=== PATIENT | male | born 1940 | race Caucasian/White ===

== ENCOUNTER 2020-03-10 16:42 | Inpatient (IN) | payer OTHER, SELFPAY ==
[2020-03-10 16:42] VITALS: BP 144/85; PULSE 82; RESP 20; TEMP 36.6; O2SAT 94; BMI 25.1
[2020-03-10] MEDS: Morphine 4 MG/ML Syringe IV (17:35)
[2020-03-10] MEDS: 0.9% Normal Saline 1,000 ML 1000 ML IV (17:35)
[2020-03-10] MEDS: Ondansetron 4 MG/2 ML Vial IV (17:35)
[2020-03-10 17:39] LABS: Absolute Lymphocyte Count 0.86 X10^3/uL (0.83-4.51); Absolute Neutrophil Count 8.7 X10^3/uL (2.0-7.7); Basophil# 0.05 X10^3/uL; Basophil% 0.4 % (0-1); Eosinophil# 0.09 X10^3/uL; Eosinophils% 0.8 % (0-5); Hematocrit 38.1 % (40-54); Hemoglobin 12.9 g/dL (13.0-16.5); Lymphocyte # 0.86 X10^3/ul (4.0); Lymphocyte % 7.7 % (19-41); Mean Corp Hgb Conc 33.9 g/dL (32-36); Mean Corpuscular Hgb 30.1 pg (27.0-32.0); Monocyte# 1.31 X10^3/uL; Monocyte% 11.7 % (0-10); NRBC Flagged by Analyzer 0 % (0-5); Neutrophil # 8.74 X10^3/uL (2.7-7.7); Neutrophil % 78.5 % (47-70); Platelet Count 216 K/mm3 (150-450); RBC Distribution Width CV 12.6 % (11.6-14.6); RBC Distribution Width SD 41.2 fl (35.1-43.9); Red Blood Count 4.28 M/mm3 (4.6-6.2); White Blood Count 11.2 K/mm3 (4.4-11.0)
[2020-03-10 17:42] VITALS: BP 153/97; PULSE 84; RESP 17; O2SAT 93
[2020-03-10 17:56] LABS: ALB/GLOB Ratio 0.8 RATIO (0.9-2.4); AST(SGOT) 26 U/L (15-37); Alanine Aminotransfer ALT/SGPT 24 U/L (16-61); Albumin, Serum 3.3 g/dL (3.2-5.0); Alkaline Phosphatase 97 U/L (45-117); Anion Gap 14 (5-15); BUN 102 mg/dL (7-18); BUN/Creat Ratio 12.2 RATIO (10-20); Calcium,Total 8.6 mg/dL (8.5-10.1); Chloride 93 mmol/L (98-107); Creatinine, Serum 8.35 mg/dL (0.70-1.30); EST Glomerular Filtration Rate 7 mL/min (>60); Est Glom Filt Rate - Afr Amer 8 mL/min (>60); Estimated Creatinine Clearance 7.26 ml/min; Globulin 4.4 g/dL (2.2-4.2); Glucose 116 mg/dL (74-106); Potassium 4.1 mmol/L (3.5-5.1); Protein, Total 7.7 g/dL (6.4-8.2); Sodium Level 129 mmol/L (136-145)
[2020-03-10] MEDS: Lidocaine Jelly 2% 20 ML Syringe (URO-JET) 20 APPLIC TOPICAL (18:15)
--- NOTE | 2020-03-10 18:23 | CT_ITS ---
STUDY: CT ABDOMEN AND PELVIS WITHOUT CONTRAST REASON FOR EXAM: Male, 80 years old. LT LOWER ABD PAIN X ONE WEEK, UNABLE TO URINATE RADIATION DOSAGE (If Supplied By Facility): CTDIvol = ( 7.28 ) mGy, DLP = ( 394.56 ) mGycm TECHNIQUE: Transaxial images were obtained from the dome of the diaphragm to the symphysis pubis without oral contrast, and without intravenous contrast. Sagittal and coronal images were reconstructed. Individualized dose optimization techniques were used for this CT. COMPARISON: None. FINDINGS: There is mild prominence of interstitial markings in the lower lobes subsegmental atelectasis at the right base. The heart is upper normal size and there is mild coronary artery calcification. Normal liver. Distended gallbladder without calcified stones or pericholecystic edema.. Normal spleen. Normal pancreas. Normal bilateral adrenal glands. Moderate to severe bilateral hydroureteronephrosis secondary to massively distended bladder with trabeculation extending into the mid abdomen on the right displacing small bowel and colon out of the pelvis into the mid abdomen. The multiple tiny focal calcifications within the bladder wall Normal visualized stomach. Nonspecific diffuse ileus pattern. No evidence for acute appendicitis.. Atherosclerotic changes of the aorta without evidence for aneurysm. Normal inferior vena cava. Normal retroperitoneum. Nonspecific enlargement of the prostate Normal abdominal wall. Lumbar spine demonstrates mild spondylosis. 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 CT/Abdomen/Pelvis without Cont IMPRESSION: Bilateral hydroureteronephrosis secondary to massive bladder distention which extends into the mid abdomen to the right of the midline displacing loops of small and large bowel. Etiology is indeterminate although likely related to prostatic enlargement however clinical correlation is recommended Electronically Signed: Jenaro Cabral MD at 19:24 EDT , Service support ,
--- NOTE | 2020-03-10 18:33 | HP.PCM_ITS ---
Problem List (1) HIMANSHU (acute kidney injury) Status: Acute (2) Urine retention Status: Acute History of Present Illness Date of Admission: 03/10/20 Chief Complaint: Abdomional pain on-going for weeks The patient is a 80 year old M with no significant past medical history who comes in with abdominal pain, flank pain ongoing for 1 week, maybe weeks, associated with poor urine stream. He denied any use of any medication. He takes some herbs. Denied the use of NSAIDs. Admitted to flank pain that is severe. He last urinated around 1 PM on the day of admission. He had a fair amount of urine. Denied any hematuria. He however has noted the last few days that he has a poor urine stream. Denies any strangury or urgency or feeling of incomplete emptying. In the ED showed temperature 98F, heart rate 82, blood pressure 144/85, respiratory rate was 20, SPO2 94% on room air. BC count 11.2, hemoglobin 12.9, platelet count 216, sodium 129, potassium 4.1, chloride 93, bicarbonate 22, BUN 102, creatinine 8.35. No previous creatinine to compare to. Glucose 116. Left is unremarkable. UA is cloudy, occult blood 250, nitrate negative, leukocyte esterase 500 In the ED, a Reyes catheter was unable to be placed. Urology was consulted and assisted with Reyes catheter placement. Past Medical History Allergies No Known Allergies Allergy (Verified 03/10/20 16:44) Home Medications: Ambulatory Orders Medication Instructions Recorded Smz/Tmp Ds [Bactrim Ds] 1 tab PO BID 03/10/20 Surgical History: no surgical history Psychiatric History: No pertinent psych hx Lives: Spouse/ Significant Other, With Family Smoking Status: Never smoker Tobacco Use: Non-smoker Alcohol: None Drugs: None - *Family History Maternal History Items: No pertinent history Paternal History Items: No pertinent history Review of Systems Constitutional: Denies: Anorexia, Chills, Fever, Night Sweats, Malaise, Weakness, Weight Change, Fatigue Eyes: Denies: Blurred vision, Cataracts, Conjunctivae Inflammation, Pain, Redness HEENT: Denies: Difficulty Hearing, Head Aches, Sinus Congestion, Sinus Drainage Cardiovascular: Denies: Chest Pain, Claudication, Palpitations Respiratory: Denies: Cough, Shortness of Breath, Shortness of breath at rest, Shortness of breath upon exertion, Sputum production, Wheezing Gastrointestinal: Reports: Abdominal Pain. Denies: Hematemesis, Nausea, Melena, Vomiting Genitourinary: Reports: Incontinence, Retention. Denies: Dysuria, Frequency, Hematuria, Hesitancy, Urgency Musculoskeletal: Denies: Joint Pain, Joint swelling, Joint Tenderness Skin: Denies: Rash, Wounds Neurological: Denies: Numbness, Tingling, Focal weakness Psychiatric: Denies: Anxiety, Depression, Homicidal Ideations, Suicidal Ideations Hematologic/ Lymphatic: Denies: Easy Bruising, Easy Bleeding VTE Information - Inpt Only VTE Present on Admission: No VTE Pharm Prophylaxis ordered?: Yes Patient Problems: Active and Suspected Problems HIMANSHU (acute kidney injury) (Acute) Urine retention (Acute) - Physical Exam Vitals/I&O's: Vital Signs Temp Pulse Resp BP Pulse Ox 98 F 84 17 153/97 H 93 03/10/20 16:42 03/10/20 17:42 03/10/20 17:42 03/10/20 17:42 03/10/20 17:42 Oxygen Delivery Method Room Air Weight: 81.647 kg Body Mass Index (BMI) 25.1 General: Alert, Oriented x3, Cooperative, No apparent distress HEENT: Atraumatic, PERRLA, EOMI, Normocephalic Oral: Dry Mucosa Neck: Supple Lungs: Clear to auscultation, Normal air movement Cardiovascular: Regular rate, Regular Rhythm, Normal S1, Normal S2, No murmurs Abdomen: Bowel Sounds Present, Soft, Non-Distended, No Hepato-splenomegaly, Tender - slightly tender, full suprapubic and abdominal region, bladder to the epigastric region Extremities: No edema Skin: No rashes, No breakdown Musculoskeletal: No Tenderness to Palpation of Joints or Extremities Neurological: Cranial nerves II-XII grossly intact Psych/Mental Status: Normal Affect, Appropriate Laboratory Results 03/10/20 17:25: WBC 11.2 H, RBC 4.28 L, Hgb 12.9 L, Hct 38.1 L, MCV 89.0, MCH 30.1, MCHC 33.9, RDW Std Deviation 41.2, RDW Coeff of Sergio 12.6, Plt Count 216, MPV 11.0, Immature Gran % (Auto) 0.900, Neut % (Auto) 78.5 H, Lymph % (Auto) 7.7 L, Addison % (Auto) 11.7 H, Eos % (Auto) 0.8, Baso % (Auto) 0.4, Absolute Neuts (auto) 8.7 H, Absolute Lymphs (auto) 0.86, Nucleated RBC % 0 03/10/ 17:25: Sodium 129 L, Potassium 4.1, Chloride 93 L, Carbon Dioxide 22.0, Anion Gap 14, BUN 102 H*, Creatinine 8.35 H*, Estim Creat Clear Calc 7.26, Est GFR (MDRD) Af Amer 8 L, Est GFR (MDRD) Non-Af 7 L, BUN/Creatinine Ratio 12.2, Glucose 116 H, Calcium 8.6, Total Bilirubin 0.40, AST 26, ALT 24, Alkaline Phosphatase 97, Total Protein 7.7, Albumin 3.3, Globulin 4.4 H, Albumin/Globulin Ratio 0.8 L Current Medications Iopamidol (Contrast Allergy Check) 0 ml IV X1 [place] Assessment/Plan All Active Problems HIMANSHU (acute kidney injury) (Acute) Urine retention (Acute) 80 year old M with no significant past medical history who comes in with abdominal pain, flank pain ongoing for 1 week, maybe weeks, associated with poor urine stream. 1. Acute kidney injury, post renal, secondary to prostate enlargement Admitted creatinine is 8.35, BUN 102, no previous creatinine to compare to CT of the abdomen and pelvis without contrast shows bilateral hydronephrosis sec ondary to massive bladder distention which extends into his mid abdomen Status post Reyes catheter placement Urology consulted, outpatient therapy recommended Nephrology consulted, continue on IV fluids, repeat blood work in a.m. Check urine sodium, urine creatinine, renal diet 2. Elevated blood pressure without history of hypertension Likely secondary to situational anxiety We will continue with pain control, continue to reassess, hydralazine as needed 3. 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 DVT prophylaxis with heparin subcu 5. CODE STATUS: DNR CCA Discussed in detail with the patient explaining the various types of CODE STATUS-full code, DNR CCA, DNR CC. Patient states that he did not want to be resuscitated and received CPR if his heart to stop. He chose DNR CCA. I advised him to choose a power of ip technology transactions attorney for healthcare. Time spent discussing CODE STATUS 17 minutes Inpatient E&M: 37020 Init Hosp L3 Procedures: 09166 Advncd Care Plan 30 Min
--- NOTE | 2020-03-10 18:43 | ED.RN ---
4 attempts to pass prostates with castro catheter, and three way. clots minmal blood. not able to advance catheter.
[2020-03-10 18:44] VITALS: BP 153/98; PULSE 80; RESP 16; TEMP 36.2; O2SAT 91
--- NOTE | 2020-03-10 18:49 | ED.VIS.GEN ---
History of Present Illness Chief Complaint: Abd Pain Informant: Patient Onset: Days Context: Gradual Onset Timing: Continuous Current Severity: Moderate Maximum Severity: Moderate Narrative: The patient is an 80-year-old male with no significant medical history takes no daily medications that presents to the emergency department with abdominal pain. The patient states that over the past week, he is had increasing pressure in his lower abdomen. He is been nauseated without vomiting. He states that he is taken some Tylenol with little improvement. He states that he was to the point where when he tries to urinate he feels like he can go some, but not empty fully. He states now, he has been having incontinence which is atypical for him. He denies any weakness of his legs. He denies any fevers or chills. He has no history of prior abdominal surgery. He is otherwise been in his normal state of health. Prior similar symptoms: No Recent Illness/Hospitalization: No Past Medical History - Allergies and Home Meds Allergies/Adverse Reactions: Allergies No Known Allergies Allergy (Verified 03/10/20 16:44) Prior records reviewed: Yes Past Medical History: None Surgical History: no surgical history Smoking Status: Never smoker Review of Systems General: Denies: Chills, Fever, Sweats Eyes: Denies: Visual changes - bilaterally, Diplopia ENT: Denies: Rhinorrhea, Sore throat Cardiovascular: Denies: Chest pain, Palpitations Respiratory: Denies: Dyspnea, Cough, Dyspnea on exertion Gastrointestinal: Reports: Abdominal pain, Nausea. Denies: Vomiting, Diarrhea, Melena, Hematochezia Genitourinary: Reports: Frequency. Denies: Dysuria, Hematuria Musculoskeletal: Denies: Back pain, Extremity Pain Skin: Denies: Rash, Wounds Neurological: Denies: Headache, Weakness, Numbness Physical Exam Vital Signs/Narrative: Vital Signs Temp Pulse Resp BP Pulse Ox 03/10/20 17:42 84 17 153/97 H 93 03/10/20 16:42 98 F 82 20 H 144/85 H 94 Inital Vital Signs reviewed: Yes General: Well nourished, Well developed, No Acute Distress Head: Normocephalic, Atraumatic Eyes: Perrl, EOMI ENT: Moist mucous membranes, No rhinorrhea Neck: Supple, Nontender Cardiovascular: Regular rate, Regular rhythm, No murmurs Respiratory: No distress, CTA bilaterally, Chest nontender Abdomen: Soft, Nondistended, Normal bowel sounds, Tender Back: Nontender, Normal Inspection Extremities: Nontender, No edema Skin: Normal color, No rash Neurological: Alert, Oriented x3, Cranial nerves II-XII grossly intact, Normal Strength, Normal Sensation Psychological: Normal affect, Normal Mood Diagnostic/Tx/Re-eval Abnormal Lab Results 03/10/20 03/10/20 17:25 17:25 WBC 11.2 H RBC 4.28 L Hgb 12.9 L Hct 38.1 L MCV 89.0 MCH 30.1 MCHC 33.9 RDW Std Deviation 41.2 RDW Coeff of Sergio 12.6 Plt Count 216 MPV 11.0 Immature Gran % (Auto) 0.900 Neut % (Auto) 78.5 H Lymph % (Auto) 7.7 L [place] % (Auto) 11.7 H Eos % (Auto) 0.8 Baso % (Auto) 0.4 Absolute Neuts (auto) 8.7 H Absolute Lymphs (auto) 0.86 Nucleated RBC % 0 Sodium 129 L Potassium 4.1 Chloride 93 L Carbon Dioxide 22.0 Anion Gap 14 BUN 102 H* Creatinine 8.35 H* Estim Creat Clear Calc 7.26 Est GFR (MDRD) Af Amer 8 L Est GFR (MDRD) Non-Af 7 L BUN/Creatinine Ratio 12.2 Glucose 116 H Calcium 8.6 Total Bilirubin 0.40 AST 26 ALT 24 Alkaline Phosphatase 97 Total Protein 7.7 Albumin 3.3 Globulin 4.4 H Albumin/Globulin Ratio 0.8 L - Medical Decision Making The patient presents with increasing suprapubic fullness, urinary incontinence, and generalized malaise. The patient has palpable bladder up to the umbilicus. Screening labs are obtained. He does have evidence of acute kidney injury and uremia. We had attempted to place a Reyes catheter multiple times, but because of obstruction, it was unable to be placed. I did discuss the patient with urology, Dr. Pro Dimas. He is going to evaluate the patient here in the emergency department. With the patient's evidence of acute kidney injury, he will obviously need admitted. He was discussed with the hospitalist. Impression Obstructive uropathy Acute kidney injury
--- NOTE | 2020-03-10 19:10 | PCM.CONS.U ---
Reason for Consult Date of Consultation: 03/10/20 Reason for Consultation: urinary retention History of Present Illness: The patient is a 80 year old male with retention of urine placed castro in ER with 2 L of urine out of bladder Creatine elevated. ER staff could not place castro Past Medical History Allergies No Known Allergies Allergy (Verified 03/10/20 16:44) Home Medications: Ambulatory Orders Medication Instructions Recorded NK 03/10/20 Surgical History: no surgical history Psychiatric History: No pertinent psych hx Lives: Alone Smoking Status: Never smoker Tobacco Use: Non-smoker Alcohol: None Drugs: None - *Family History Maternal History Items: No pertinent history Review of Systems Constitutional: Denies: Chills, Fever, Weight Change HEENT: Denies: Head Aches, Sinus Congestion, Sinus Drainage Cardiovascular: Denies: Chest Pain, Palpitations Respiratory: Denies: Cough, Shortness of breath at rest, Sputum production Gastrointestinal: Denies: Abdominal Pain, Nausea, Vomiting Genitourinary: Denies: Dysuria Musculoskeletal: Denies: Joint Pain, Joint Tenderness Skin: Denies: Rash, Wounds Neurological: Denies: Numbness, Tingling, Focal weakness Psychiatric: Denies: Anxiety, Depression, Homicidal Ideations, Suicidal Ideations Hematologic/ Lymphatic: Denies: Easy Bruising, Easy Bleeding Physical Exam - Physical Exam Vital Signs Temp 97.1 F L 03/10/20 18:44 Pulse 80 03/10/20 18:44 Resp 16 03/10/20 18:44 BP 153/98 H 03/10/20 18:44 Pulse Ox 91 03/10/20 18:44 Intake & Output 03/08/20 03/09/20 03/10/20 23:59 23:59 23:59 Weight: 81.647 kg General: Alert, Oriented x3 HEENT: Atraumatic Oral: Moist Mucosa Neck: Supple Lungs: Clear to auscultation Cardiovascular: Regular rate Abdomen: Soft Laboratory Tests Past 24 Hrs 03/10/20 03/10/20 17:25 17:25 WBC 11.2 H RBC 4.28 L Hgb 12.9 L Hct 38.1 L MCV 89.0 MCH 30.1 MCHC 33.9 RDW Std Deviation 41.2 RDW Coeff of Sergio 12.6 Plt Count 216 MPV 11.0 Immature Gran % (Auto) 0.900 Neut % (Auto) 78.5 H Lymph % (Auto) 7.7 L [place] % (Auto) 11.7 H Eos % (Auto) 0.8 Baso % (Auto) 0.4 Absolute Neuts (auto) 8.7 H Absolute Lymphs (auto) 0.86 Nucleated RBC % 0 Sodium 129 L Potassium 4.1 Chloride 93 L Carbon Dioxide 22.0 Anion Gap 14 BUN 102 H* Creatinine 8.35 H* Estim Creat Clear Calc 7.26 Est GFR (MDRD) Af Amer 8 L Est GFR (MDRD) Non-Af 7 L BUN/Creatinine Ratio 12.2 Glucose 116 H Calcium 8.6 Total Bilirubin 0.40 AST 26 ALT 24 Alkaline Phosphatase 97 Total Protein 7.7 Albumin 3.3 Globulin 4.4 H Albumin/Globulin Ratio 0.8 L Assessment/Plan 80 yo with retention of urine. castro placed will need to go home with castro follow with urology as outpatient. probably will need a TURP.
[2020-03-10 19:39] LABS: Bacteria 0 SEEN /hpf (None Seen); Mucous, Urine 0 SEEN /hpf (<or=2+)
[2020-03-10 19:44] LABS: Glucose, Dipstick Normal (Normal); Ketone-Dipstick Negative (Negative); Leukocyte Esterase-Dipstick 500 /ul (Negative); Nitrite-Dipstick Negative (Negative); Occult Blood-Urine 250 /ul (Negative); Protein-Dipstick 30 mg/dl (Negative); Urine Bilirubin Dipstick Negative (Negative); Urine Clarity Cloudy (Clear); Urine Urobilinogen Normal (Normal)
[2020-03-10 19:49] LABS: Color, Urine SEE COMMENT BELOW (Yellow)
[2020-03-10 19:52] LABS: Red Blood Cells-Urine > 100 SEEN /hpf (0-5)
[2020-03-10 19:58] LABS: White Blood Cells 10-25 SEEN /hpf (0-5)
[2020-03-10 20:02] LABS: Squamous Epithelial Cells - UA 0 SEEN /hpf (0-5)
[2020-03-10 20:06] LABS: Transitional Epithelial - Ur 0-5 SEEN /hpf (0-5)
[2020-03-10 20:09] LABS: Renal Epithelial Cells 5-10 SEEN /hpf (0-5)
[2020-03-10 20:23] VITALS: BMI 25.2; BMI 25.3
[2020-03-10 20:40] VITALS: BP 108/90; PULSE 79; RESP 18; TEMP 36.8; O2SAT 93
[2020-03-10 20:44] VITALS: PULSE 85
[2020-03-10] MEDS: 0.9% Normal Saline 1,000 ML 100 ML IV (22:16)
[2020-03-10] MEDS: Heparin Injection (Vial) 5,000 UNIT/ML VIAL 5000 UNIT SC (22:16)
[2020-03-10 22:59] VITALS: PULSE 77
[2020-03-11] VITALS (23 sets, daily range): BP systolic 85–122; BP diastolic 38–85; PULSE 71–130; RESP 15–20; TEMP 36.5–37.1; O2SAT 90–99
[2020-03-11 00:12] LABS: Urine Sodium 40 mmol/L (Not Establ.)
--- NOTE | 2020-03-11 01:04 | EKG12_ITS ---
Test Reason : DYSRHYTHMIA Blood Pressure : / mmHG Vent. Rate : 080 BPM Atrial Rate : 097 BPM P-R Int : 160 ms QRS Dur : 088 ms QT Int : 416 ms P-R-T Axes : 066 025 033 degrees QTc Int : 479 ms Sinus rhythm with marked sinus arrhythmia ST & T wave abnormality, consider anterior ischemia Abnormal ECG No previous ECGs available Confirmed by CELESTE DEXTER ([id number]), editor news MARCIE CAPONE ([id number]) on 03/17/2020 12:01:23 PM Referred By: KG Confirmed By:CELESTE DEXTER
[2020-03-11] MEDS: Heparin Injection (Vial) 5,000 UNIT/ML VIAL 5000 UNIT SC ×3 (05:17→22:34)
[2020-03-11 05:56] LABS: Absolute Neutrophil Count 4.8 X10^3/uL (2.0-7.7); Basophil# 0.05 X10^3/uL; Basophil% 0.8 % (0-1); Eosinophils% 1.5 % (0-5); Hematocrit 32.2 % (40-54); Hemoglobin 10.7 g/dL (13.0-16.5); Lymphocyte % 10.8 % (19-41); Mean Corp Hgb Conc 33.2 g/dL (32-36); Mean Corpuscular Hgb 30.4 pg (27.0-32.0); Mean Corpuscular Volume 91.5 fL (80-94); Mean Platelet Vol. 10.5 fl (6.2-12.0); Monocyte# 0.85 X10^3/uL; Monocyte% 13.1 % (0-10); NRBC Flagged by Analyzer 0 % (0-5); Neutrophil # 4.75 X10^3/uL (2.7-7.7); Neutrophil % 73.5 % (47-70); Platelet Count 176 K/mm3 (150-450); RBC Distribution Width CV 12.9 % (11.6-14.6); RBC Distribution Width SD 42.3 fl (35.1-43.9); Red Blood Count 3.52 M/mm3 (4.6-6.2); White Blood Count 6.5 K/mm3 (4.4-11.0)
[2020-03-11 06:31] LABS: ALB/GLOB Ratio 0.7 RATIO (0.9-2.4); AST(SGOT) 18 U/L (15-37); Alanine Aminotransfer ALT/SGPT 17 U/L (16-61); Albumin, Serum 2.4 g/dL (3.2-5.0); Alkaline Phosphatase 72 U/L (45-117); Anion Gap 7 (5-15); BUN 78 mg/dL (7-18); Calcium,Total 7.9 mg/dL (8.5-10.1); Chloride 105 mmol/L (98-107); Creatinine, Serum 4.89 mg/dL (0.70-1.30); EST Glomerular Filtration Rate 12 mL/min (>60); Est Glom Filt Rate - Afr Amer 15 mL/min (>60); Estimated Creatinine Clearance 12.03 ml/min; Globulin 3.4 g/dL (2.2-4.2); Glucose 93 mg/dL (74-106); Potassium 4.1 mmol/L (3.5-5.1); Protein, Total 5.8 g/dL (6.4-8.2); Sodium Level 136 mmol/L (136-145)
[2020-03-11] MEDS: 0.9% Normal Saline 1,000 ML 100 ML IV ×2 (07:53→18:37)
[2020-03-11 08:44] LABS: Magnesium 3.1 mg/dL (1.6-2.6); Phosphorus 3.6 mg/dL (2.5-4.9)
--- NOTE | 2020-03-11 09:02 | ECHOD_ITS ---
Reason For Study: Afib/Flutter Procedure This was a 2D Doppler, Color Flow transthoracic echocardiogram. The exam was of adequate technical quality. Exam performed portable in patient room. Left Ventricle Normal LV size. Left ventricular systolic function is normal. The estimated ejection fraction is 65 %. Unable to assess diastolic dysfunction. No regional wall motion abnormalities noted. Right Ventricle Normal RV size. Normal systolic function. Atria Normal left atrium. The right atrium is mildly enlarged. No doppler evidence for ASD. Mitral Valve There is no mitral annular calcification. Mild mitral valve prolapse, posterior leaflet. Trivial mitral valve insufficiency. Tricuspid Valve Normal tricuspid valve. Mild tricuspid valve insufficiency. Right ventricular systolic pressure estimated to be 42 mmHg. Aortic Valve Trisinus/trileaflet aortic valve. Moderate focal aortic valve calcification. Trivial aortic valve insufficiency. Pulmonic Valve The pulmonic valve is not well visualized. Great Vessels The aortic root is not well visualized. Pericardium/Pleural No pericardial effusion. MMode/2D Measurements & Calculations LVIDd: 3.9 cm IVSd: 1.2 cm LVOT diam: 2.1 cm LVIDs: 2.3 cm LVPWd: 0.94 cm LVOT area: 3.3 cm2 FS: 39.6 % LA dimension: 3.2 cm LAV(MOD-bp): 41.8 ml LA A4 area: 16.6 cm2 LAV(MOD-bp) Indexed: 20.9 ml/m2 LAV(MOD-sp2): 35.6 ml LAV(MOD-sp4): 44.2 ml RA A4 area: 18.0 cm2 Doppler Measurements & Calculations MV E max alexandra: 75.4 cm/sec Ao V2 max: 136.9 cm/sec AI max alexandra: 393.4 cm/sec Ao max P.5 mmHg AI max P.9 mmHg CHELE(V,D): 2.0 cm2 AI dec slope: 185.5 cm/sec2 AI P1/2t: 621.2 msec LV V1 max: 82.8 cm/sec MR max alexandra: 440.1 cm/sec PA V2 max: 79.3 cm/sec LV V1 max P.7 mmHg MR max P.5 mmHg MR mean alexandra: 311.6 cm/sec MR mean P.6 mmHg MR VTI: 112.6 cm TR max alexandra: 313.9 cm/sec TR max P.4 mmHg Interpretation Summary Left ventricular systolic function is normal. The estimated ejection fraction is 65 %. The right atrium is mildly enlarged. Mild mitral valve prolapse, posterior leaflet Trivial mitral valve insufficiency. Mild tricuspid valve insufficiency. Moderate focal aortic valve calcification. Trivial aortic valve insufficiency. Right ventricular systolic pressure estimated to be 42 mmHg. Unable to assess diastolic dysfunction. Ordering Physician: Jatinder Ross Referring Physician: Shin Foster Performed By: Medhat Michaels RCS
[2020-03-11 09:36] LABS: Thyroid Stim Hormone (TSH) 0.56 uIU/mL (0.358-3.74)
--- NOTE | 2020-03-11 11:39 | CASEMGMT ---
Social Work SW met with pt and introduced self and role of SW. Pt Alert and oriented X3 and willing to speak with SW. Demographics, physicians and pharmacy conformed with pt. Pt was admitted from home and was independent with care needs previously and lives with his . No care needs or concerns voiced at this time. PCP: Dr. Jaja Foster Specialists: None Pharmacy: [facility]: , [place] LW/HCPOA: Pt has not completed. Information provided and pt would like to speak with family about this. Pt made aware that he can set up appointment as outpatient to complete documents. Living Arrangement: 2 story home, flight of stairs to second floor. Pt has no difficulty going up and down stairs. ADLs: Prior to admission pt was independent with all ADLS and IADLs DME: Pt has no DME Transportation: Pt has drivers who are able to transport as needed and can assist pt with transport home. SNF/HHC: No prior Pt denies any needs at this time. Pt has been independent at home and does not feel he will need any assistance at this time. He will be returning home with his and gisela Araujo is also attentive as needed. Plan: Home no needs CURTIS Hoffman
--- NOTE | 2020-03-11 12:08 | PCM.CONS.R ---
Problem List (1) HIMANSHU (acute kidney injury) Status: Acute Consultation - Renal 03/11/20 PCP/ Referring MD: Requesting physician: [] Primary care physician: GLORIA Acuña Reason for Consultation:: HIMANSHU - History of Present Illness History of Present Illness: The patient is a 80 year old M presented with severe abdomen discomfort, inability to pass urine, weakness, bloating. found to have severe HIMANSHU, hydronephrosis. renal consulted for HIMANSHU. no prior history of renal failure. - Allergies Allergies: Allergies No Known Allergies Allergy (Verified 03/10/20 16:44) - Current Medications Current Medications: Current Medications Acetaminophen (Tylenol) 650 mg PO Q6H PRN PRN PRN Reason: Pain Score 1-10/Temp > 100.7 F Al Hydroxide/Mg Hydroxide (Mylanta Ii) 30 ml PO Q6H PRN PRN PRN Reason: Gastric Burning Heparin Sodium (Porcine) (Heparin Na) 5,000 unit SC Q8 [place] Last Admin: 03/11/20 05:17 Dose: 5,000 unit Documented by: Sodium Chloride () 250 mls @ 15 mls/hr IV .[id number] PRN PRN Reason: Saline Flush Sodium Chloride () 250 mls @ 15 mls/hr IV .[id number] PRN PRN Reason: Additional IVPB Infusion Sodium Chloride () 1,000 mls @ 100 mls/hr IV .Q10H [facility] Last Admin: 03/11/20 07:53 Dose: 100 mls/hr Documented by: Diltiazem HCl 125 mg/ Dextrose 125 mls @ 5 mls/hr IV .Q25H [place]; Protocol Last Titration: 03/11/20 11:30 Dose: 5 mg/hr, 5 mls/hr Documented by: Sodium Chloride () 10 - 40 ml IV UD PRN PRN Reason: SALINE FLUSH - Past Surgical History Surgical History: no surgical history - Social History Smoking Status: Never smoker Alcohol: None Drugs: None - Family History Maternal History Items: No pertinent history Paternal History Items: No pertinent history Review of Systems Constitutional: Denies: Chills, Fever, Weight Change HEENT: Denies: Head Aches, Sinus Congestion, Sinus Drainage Cardiovascular: Denies: Chest Pain, Palpitations Respiratory: Denies: Cough, Shortness of breath at rest, Sputum production Gastrointestinal: Denies: Abdominal Pain, Nausea, Vomiting Genitourinary: Denies: Dysuria Musculoskeletal: Denies: Joint Pain, Joint Tenderness Skin: Denies: Rash, Wounds Neurological: Denies: Numbness, Tingling, Focal weakness Psychiatric: Denies: Anxiety, Depression, Homicidal Ideations, Suicidal Ideations Hematologic/ Lymphatic: Denies: Easy Bruising, Easy Bleeding Patient Problems: Active and Suspected Problems HIMANSHU (acute kidney injury) (Acute) Urine retention (Acute) - Physical Exam Vitals/I&O's: Vital Signs Temp Pulse Resp BP Pulse Ox 97.7 F L 93 18 92/68 90 03/11/20 09:45 03/11/20 11:30 03/11/20 11:30 03/11/20 11:30 03/11/20 11:30 Oxygen Delivery Method Room Air Weight: 81.9 kg Body Mass Index (BMI) 25.2 Intake and Output for Last 24 Hours 03/09/20 03/10/20 03/11/20 23:59 23:59 23:59 Intake Total 1000 / 1000 971.85 / 971.85 Output Total 4375 / 4375 1125 / 1125 Balance -3375 / -3375 -153.15 / -153.15 General: Alert, Oriented x3, Cooperative HEENT: Atraumatic, PERRLA, EOMI, Normocephalic Neck: Supple, No JVD, Negative Carotid Bruits Lungs: Clear to auscultation, Normal air movement Cardiovascular: Regular rate, No murmurs Abdomen: Bowel Sounds Present, Soft, Non Tender Extremities: No edema, Capillary Refill Less than 3 Seconds Skin: No rashes, No breakdown Musculoskeletal: No Tenderness to Palpation of Joints or Extremities Neurological: Cranial nerves II-XII grossly intact Psych/Mental Status: Normal Affect, Appropriate Laboratory Results 03/10/20 17:25: WBC 11.2 H, RBC 4.28 L, Hgb 12.9 L, Hct 38.1 L, MCV 89.0, MCH 30.1, MCHC 33.9, RDW Std Deviation 41.2, RDW Coeff of Sergio 12.6, Plt Count 216, MPV 11.0, Immature Gran % (Auto) 0.900, Neut % (Auto) 78.5 H, Lymph % (Auto) 7.7 L, [place] % (Auto) 11.7 H, Eos % (Auto) 0.8, Baso % (Auto) 0.4, Absolute Neuts (auto) 8.7 H, Absolute Lymphs (auto) 0.86, Nucleated RBC % 0 03/10/20 17:25: Sodium 129 L, Potassium 4.1, Chloride 93 L, Carbon Dioxide 22.0, Anion Gap 14, BUN 102 H*, Creatinine 8.35 H*, Estim Creat Clear Calc 7.26, Est GFR (MDRD) Af Amer 8 L, Est GFR (MDRD) Non-Af 7 L, BUN/Creatinine Ratio 12.2, Glucose 116 H, Calcium 8.6, Total Bilirubin 0.40, AST 26, ALT 24, Alkaline Phosphatase 97, Total Protein 7.7, Albumin 3.3, Globulin 4.4 H, Albumin/Globulin Ratio 0.8 L 03/10/20 19:25: Urine Color SEE COMMENT BELOW, Urine Clarity Cloudy, Urine pH 6.0, Ur Specific [place] 1.010, Urine Protein 30 H, Urine Glucose (UA) Normal, Urine Ketones Negative, Urine Occult Blood 250 H, Urine Nitrite Negative, Urine Bilirubin Negative, Urine Urobilinogen Normal, Ur Leukocyte Esterase 500 H, Urine RBC > 100 SEEN, Urine WBC 10-25 SEEN, Ur Squamous Epith Cells 0 SEEN, Ur Transition Epith Cell 0-5 SEEN, Ur Renal Epithelial Cell 5-10 SEEN, Urine Bacteria 0 SEEN, Urine Mucus 0 SEEN 03/10/20 23:40: Urine Creatinine 62.70 03/10/20 23:40: Ur Random Sodium 40 03/11/20 05:35: WBC 6.5, RBC 3.52 L, Hgb 10.7 L, Hct 32.2 L, MCV 91.5, MCH 30.4, MCHC 33.2, RDW Std Deviation 42.3, RDW Coeff of Sergio 12.9, Plt Count 176, MPV 10.5, Immature Gran % (Auto) 0.300, Neut % (Auto) 73.5 H, Lymph % (Auto) 10.8 L, [place] % (Auto) 13.1 H, Eos % (Auto) 1.5, Baso % (Auto) 0.8, Absolute Neuts (auto) 4.8, Absolute Lymphs (auto) 0.70 L, Nucleated RBC % 0 03/11/20 05:35: Sodium 136, Potassium 4.1, Chloride 105, Carbon Dioxide 24.0, Anion Gap 7, BUN 78 H, Creatinine 4.89 H, Estim Creat Clear Calc 12.03, Est GFR (MDRD) Af Amer 15 L, Est GFR (MDRD) Non-Af 12 L, BUN/Creatinine Ratio 16.0, Glucose 93, Calcium 7.9 L, Total Bilirubin 0.30, AST 18, ALT 17, Alkaline Phosphatase 72, Total Protein 5.8 L, Albumin 2.4 L, Globulin 3.4, Albumin/Globulin Ratio 0.7 L 03/11/20 05:35: Phosphorus 3.6, Magnesium 3.1 H 03/11/20 05:35: TSH 0.56 Current Medications Acetaminophen (Tylenol) 650 mg PO Q6H PRN PRN PRN Reason: Pain Score 1-10/Temp > 100.7 F Al Hydroxide/Mg Hydroxide (Mylanta Ii) 30 ml PO Q6H PRN PRN PRN Reason: Gastric Burning Heparin Sodium (Porcine) (Heparin Na) 5,000 unit SC Q8 [place] Last Admin: 03/11/20 05:17 Dose: 5,000 unit Documented by: Sodium Chloride () 250 mls @ 15 mls/hr IV .[id number] PRN PRN Reason: Saline Flush Sodium Chloride () 250 mls @ 15 mls/hr IV .[id number] PRN PRN Reason: Additional IVPB Infusion Sodium Chloride () 1,000 mls @ 100 mls/hr IV .Q10H [facility] Last Admin: 03/11/20 07:53 Dose: 100 mls/hr Documented by: Diltiazem HCl 125 mg/ Dextrose 125 mls @ 5 mls/hr IV .Q25H [facility]; Protocol Last Titration: 03/11/20 11:30 Dose: 5 mg/hr, 5 mls/hr Documented by: Sodium Chloride () 10 - 40 ml IV UD PRN PRN Reason: SALINE FLUSH Assessment/Plan All Active Problems HIMANSHU (acute kidney injury) (Acute) Urine retention (Acute) HIMANSHU. CT abd reviewed. severe bladder distention with hydronephrosis. castro placed by urology. no prior kidney disease as per records. likely all obstructive related. continue fluids. likely can dc tomorrow if cr continues to improve
--- NOTE | 2020-03-11 12:30 | PN_ITS ---
<Atul Oshea - Last Filed: 03/11/20 12:30> Patient Problems: Active and Suspected Problems HIMANSHU (acute kidney injury) (Acute) Urine retention (Acute) Reason for Visit: abd pain and urinary retention Subjective: Castro in place with good drainage. No further abd or flank pain. No palpitations , SOB, or CP, no LE edema. Vitals/I&O's: Vital Signs Temp Pulse Resp BP Pulse Ox 97.7 F L 93 18 92/68 90 03/11/20 09:45 03/11/20 11:30 03/11/20 11:30 03/11/20 11:30 03/11/20 11:30 Oxygen Delivery Method Room Air Weight: 180 lb 8.937 oz Body Mass Index (BMI) 25.2 Intake and Output for Last 24 Hours 03/09/20 03/10/20 03/11/20 23:59 23:59 23:59 Intake Total 1000 / 1000 971.85 / 971.85 Output Total 4375 / 4375 1125 / 1125 Balance -3375 / -3375 -153.15 / -153.15 General: Alert, Oriented x3, Cooperative HEENT: Atraumatic, PERRLA, EOMI, Normocephalic Neck: Supple, No JVD, Negative Carotid Bruits Lungs: Clear to auscultation, Normal air movement Cardiovascular: No murmurs, Irregular Rate, Tachycardic Abdomen: Bowel Sounds Present, Soft, Non Tender Extremities: No edema, Capillary Refill Less than 3 Seconds Skin: No rashes, No breakdown Musculoskeletal: No Tenderness to Palpation of Joints or Extremities Neurological: Cranial nerves II-XII grossly intact Psych/Mental Status: Normal Affect, Appropriate, Alert and oriented to time, place, person, mood and affect Laboratory Results 03/10/20 17:25: WBC 11.2 H, RBC 4.28 L, Hgb 12.9 L, Hct 38.1 L, MCV 89.0, MCH 30.1, MCHC 33.9, RDW Std Deviation 41.2, RDW Coeff of Sergio 12.6, Plt Count 216, MPV 11.0, Immature Gran % (Auto) 0.900, Neut % (Auto) 78.5 H, Lymph % (Auto) 7.7 L, [place] % (Auto) 11.7 H, Eos % (Auto) 0.8, Baso % (Auto) 0.4, Absolute Neuts (auto) 8.7 H, Absolute Lymphs (auto) 0.86, Nucleated RBC % 0 03/10/20 17:25: Sodium 129 L, Potassium 4.1, Chloride 93 L, Carbon Dioxide 22.0, Anion Gap 14, BUN 102 H*, Creatinine 8.35 H*, Estim Creat Clear Calc 7.26, Est GFR (MDRD) Af Amer 8 L, Est GFR (MDRD) Non-Af 7 L, BUN/Creatinine Ratio 12.2, Glucose 116 H, Calcium 8.6, Total Bilirubin 0.40, AST 26, ALT 24, Alkaline Phosphatase 97, Total Protein 7.7, Albumin 3.3, Globulin 4.4 H, Albumin/Globulin Ratio 0.8 L 03/10/20 19:25: Urine Color SEE COMMENT BELOW, Urine Clarity Cloudy, Urine pH 6.0, Ur Specific [place] 1.010, Urine Protein 30 H, Urine Glucose (UA) Normal, Urine Ketones Negative, Urine Occult Blood 250 H, Urine Nitrite Negative, Urine Bilirubin Negative, Urine Urobilinogen Normal, Ur Leukocyte Esterase 500 H, Urine RBC > 100 SEEN, Urine WBC 10-25 SEEN, Ur Squamous Epith Cells 0 SEEN, Ur Transition Epith Cell 0-5 SEEN, Ur Renal Epithelial Cell 5-10 SEEN, Urine Bacteria 0 SEEN, Urine Mucus 0 SEEN 03/10/20 23:40: Urine Creatinine 62.70 03/10/20 23:40: Ur Random Sodium 40 03/11/20 05:35: WBC 6.5, RBC 3.52 L, Hgb 10.7 L, Hct 32.2 L, MCV 91.5, MCH 30.4, MCHC 33.2, RDW Std Deviation 42.3, RDW Coeff of Sergio 12.9, Plt Count 176, MPV 10.5, Immature Gran % (Auto) 0.300, Neut % (Auto) 73.5 H, Lymph % (Auto) 10.8 L, [place] % (Auto) 13.1 H, Eos % (Auto) 1.5, Baso % (Auto) 0.8, Absolute Neuts (auto) 4.8, Absolute Lymphs (auto) 0.70 L, Nucleated RBC % 0 03/11/20 05:35: Sodium 136, Potassium 4.1, Chloride 105, Carbon Dioxide 24.0, An ion Gap 7, BUN 78 H, Creatinine 4.89 H, Estim Creat Clear Calc 12.03, Est GFR (MDRD) Af Amer 15 L, Est GFR (MDRD) Non-Af 12 L, BUN/Creatinine Ratio 16.0, Glucose 93, Calcium 7.9 L, Total Bilirubin 0.30, AST 18, ALT 17, Alkaline Phosphatase 72, Total Protein 5.8 L, Albumin 2.4 L, Globulin 3.4, Albumin/Globulin Ratio 0.7 L 03/11/20 05:35: Phosphorus 3.6, Magnesium 3.1 H 03/11/20 05:35: TSH 0.56 Current Medications Acetaminophen (Tylenol) 650 mg PO Q6H PRN PRN PRN Reason: Pain Score 1-10/Temp > 100.7 F Al Hydroxide/Mg Hydroxide (Mylanta Ii) 30 ml PO Q6H PRN PRN PRN Reason: Gastric Burning Heparin Sodium (Porcine) (Heparin Na) 5,000 unit SC Q8 [facility] Last Admin: 03/11/20 05:17 Dose: 5,000 unit Documented by: Sodium Chloride () 250 mls @ 15 mls/hr IV .[id number] PRN PRN Reason: Saline Flush Sodium Chloride () 250 mls @ 15 mls/hr IV .[id number] PRN PRN Reason: Additional IVPB Infusion Sodium Chloride () 1,000 mls @ 100 mls/hr IV .Q10H [facility] Last Admin: 03/11/20 07:53 Dose: 100 mls/hr Documented by: Diltiazem HCl 125 mg/ Dextrose 125 mls @ 5 mls/hr IV .Q25H [facility]; Protocol Last Titration: 03/11/20 11:30 Dose: 5 mg/hr, 5 mls/hr Documented by: Sodium Chloride () 10 - 40 ml IV UD PRN PRN Reason: SALINE FLUSH STROKE Vital Signs/Narrative: Vital Signs Temp Pulse Resp BP Pulse Ox 03/11/20 11:30 93 18 92/68 90 03/11/20 11:13 92 18 100/64 94 03/11/20 10:32 102 H 18 94/61 94 03/11/20 10:15 98 85/47 L 93 03/11/20 10:00 92 101/61 93 03/11/20 09:45 97.7 F L 109 H 18 110/65 93 03/11/20 09:28 97.9 F 123 H 18 97/68 94 03/11/20 09:10 97.9 F 130 H 18 103/38 L 94 Medical Necessity - Tobacco Use Smoking Status: Never smoker Tobacco Use: Non-smoker Assessment/Plan All Active Problems HIMANSHU (acute kidney injury) (Acute) Urine retention (Acute) 1. HIMANSHU 2/2 urinary retention 2/2 BPH - nephro and urology following. Continue castro. Continue flomax. HIMANSHU drastically improved. CT with enlarged bladder with hydronephrosis and enlarged prostate. Urology note says home with castro and likely TURP later on. UA with no bacteria. 2. pAfib with RVR - one prior episode afib about ten years ago, pt states this was picked up at a blood bank. He went to see his chiropractor for this who placed him on ivory pills 8x per day to treat it. Since then no recurrence. Rate improved on cardizem drip. Transition to PO metoprolol later today. -Echo shows EF 65% RVSP 42 mmHg, enlarged right atrium, mild MVP, trivial MVI, mild TVI, moderate AV calcifications, trivial ZEE. -TSH normal. -Chadvasc =2 : age >75 (2) -HASBLED =1: age>65 (1) 3. Normocytic anemia - check iron / tibc / sat 4. Hyponatremia - hypervolemic, resolved with resolution of bladder obstruction. DVT ppx: heparin DC planning: likely home tomorrow. This patient was seen by Atul Oshea PA-C under the supervision of Doctor Ross. <Jatinder Ross - Last Filed: 03/11/20 14:29> Vitals/I&O's: Vital Signs Temp Pulse Resp BP Pulse Ox 97.7 F L 75 18 106/63 94 03/11/20 09:45 03/11/20 14:00 03/11/20 14:00 03/11/20 14:00 03/11/20 14:00 Oxygen Delivery Method Room Air Weight: 180 lb 8.937 oz Body Mass Index (BMI) 25.2 Intake and Output for Last 24 Hours 03/09/20 03/10/20 03/11/20 23:59 23:59 23:59 Intake Total 1000 / 1000 1224.35 / 1224.35 Output Total 4375 / 4375 2024 Balance -3375 / -3375 -800.65 / -800.65 Laboratory Results 03/10/20 17:25: WBC 11.2 H, RBC 4.28 L, Hgb 12.9 L, Hct 38.1 L, MCV 89.0, MCH 30.1, MCHC 33.9, RDW Std Deviation 41.2, RDW Coeff of Sergio 12.6, Plt Count 216, MPV 11.0, Immature Gran % (Auto) 0.900, Neut % (Auto) 78.5 H, Lymph % (Auto) 7.7 L, [place] % (Auto) 11.7 H, Eos % (Auto) 0.8, Baso % (Auto) 0.4, Absolute Neuts (auto) 8.7 H, Absolute Lymphs (auto) 0.86, Nucleated RBC % 0 03/10/20 17:25: Sodium 129 L, Potassium 4.1, Chloride 93 L, Carbon Dioxide 22.0, Anion Gap 14, BUN 102 H*, Creatinine 8.35 H*, Estim Creat Clear Calc 7.26, Est GFR (MDRD) Af Amer 8 L, Est GFR (MDRD) Non-Af 7 L, BUN/Creatinine Ratio 12.2, Glucose 116 H, Calcium 8.6, Total Bilirubin 0.40, AST 26, ALT 24, Alkaline Phosphatase 97, Total Protein 7.7, Albumin 3.3, Globulin 4.4 H, Albumin/Globulin Ratio 0.8 L 03/10/20 19:25: Urine Color SEE COMMENT BELOW, Urine Clarity Cloudy, Urine pH 6.0, Ur Specific [place] 1.010, Urine Protein 30 H, Urine Glucose (UA) Normal, Urine Ketones Negative, Urine Occult Blood 250 H, Urine Nitrite Negative, Urine Bilirubin Negative, Urine Urobilinogen Normal, Ur Leukocyte Esterase 500 H, Urine RBC > 100 SEEN, Urine WBC 10-25 SEEN, Ur Squamous Epith Cells 0 SEEN, Ur Transition Epith Cell 0-5 SEEN, Ur Renal Epithelial Cell 5-10 SEEN, Urine Bacteria 0 SEEN, Urine Mucus 0 SEEN 03/10/20 23:40: Urine Creatinine 62.70 03/10/20 23:40: Ur Random Sodium 40 03/11/20 05:35: WBC 6.5, RBC 3.52 L, Hgb 10.7 L, Hct 32.2 L, MCV 91.5, MCH 30.4, MCHC 33.2, RDW Std Deviation 42.3, RDW Coeff of Sergio 12.9, Plt Count 176, MPV 10.5, Immature Gran % (Auto) 0.300, Neut % (Auto) 73.5 H, Lymph % (Auto) 10.8 L, [place] % (Auto) 13.1 H, Eos % (Auto) 1.5, Baso % (Auto) 0.8, Absolute Neuts (auto) 4.8, Absolute Lymphs (auto) 0.70 L, Nucleated RBC % 0 03/11/20 05:35: Sodium 136, Potassium 4.1, Chloride 105, Carbon Dioxide 24.0, Anion Gap 7, BUN 78 H, Creatinine 4.89 H, Estim Creat Clear Calc 12.03, Est GFR (MDRD) Af Amer 15 L, Est GFR (MDRD) Non-Af 12 L, BUN/Creatinine Ratio 16.0, Glucose 93, Calcium 7.9 L, Total Bilirubin 0.30, AST 18, ALT 17, Alkaline Phosphatase 72, Total Protein 5.8 L, Albumin 2.4 L, Globulin 3.4, Albumin/Globulin Ratio 0.7 L 03/11/20 05:35: Phosphorus 3.6, Magnesium 3.1 H 03/11/20 05:35: TSH 0.56 03/11/20 05:35: Iron 34 L, TIBC 243 L, Iron Saturation 14.0 L Current Medications Acetaminophen (Tylenol) 650 mg PO Q6H PRN PRN PRN Reason: Pain Score 1-10/Temp > 100.7 F Al Hydroxide/Mg Hydroxide (Mylanta Ii) 30 ml PO Q6H PRN PRN PRN Reason: Gastric Burning Heparin Sodium (Porcine) (Heparin Na) 5,000 unit SC Q8 [place] Last Admin: 03/11/20 13:56 Dose: 5,000 unit Documented by: Sodium Chloride () 250 mls @ 15 mls/hr IV .[id number] PRN PRN Reason: Saline Flush Sodium Chloride () 250 mls @ 15 mls/hr IV .[id number] PRN PRN Reason: Additional IVPB Infusion Sodium Chloride () 1,000 mls @ 100 mls/hr IV .Q10H [facility] Last Admin: 03/11/20 07:53 Dose: 100 mls/hr Documented by: Metoprolol Tartrate (Lopressor (Beta Magan)) 12.5 mg PO BID [facility] Sodium Chloride () 10 - 40 ml IV UD PRN PRN Reason: SALINE FLUSH Tamsulosin HCl (Flomax) 0.4 mg PO DAILY@1730 [facility] STROKE Vital Signs/Narrative: Vital Signs Pulse Resp BP Pulse Ox 03/11/20 14:00 75 18 106/63 94 03/11/20 13:00 77 18 98/58 L 92 03/11/20 12:30 98 18 92/60 91 03/11/20 11:30 93 18 92/68 90 03/11/20 11:13 92 18 100/64 94 03/11/20 10:32 102 H 18 94/61 94 03/11/20 10:15 98 85/47 L 93 Addendum: Dr. Ross I personally examined the patient and reviewed the chart. I agree with the above. 80-year-old male presents to the hospital with abdominal and flank pain for about a week. When he presents he has a CT scan of his abdomen pelvis which show significant hydronephrosis as well as a distended bladder. There is 2 L of urine that was obtained with insertion of a Castro. His creatinine on admission was over 8 and it has corrected to about 4-1/2 today. I anticipate that he will have significant improvement even by tomorrow, his hyponatremia has resolved. He did go into A. fib with RVR which she states he had gone into previously and went to see his chiropractor who put him on [place] tablets. He was started on very low-dose Cardizem which improved his heart rate and ultimately caused him to go into sinus rhythm and improve his blood pressure. Will transition him to p.o. metoprolol 12-1/2 mg twice daily and monitor his heart rate. Based on his age, he would be a candidate for anticoagulation. Inpatient E&M: [id number] [facility] L2
[2020-03-11 13:09] LABS: Iron 34 ug/dL (65-175); Iron Binding Capacity,Total 243 ug/dL (250-450)
--- NOTE | 2020-03-11 13:25 | EKG12_ITS ---
Test Reason : RHYTHM Blood Pressure : / mmHG Vent. Rate : 071 BPM Atrial Rate : 083 BPM P-R Int : 152 ms QRS Dur : 084 ms QT Int : 408 ms P-R-T Axes : 064 037 037 degrees QTc Int : 443 ms Sinus rhythm with marked sinus arrhythmia Nonspecific ST abnormality Abnormal ECG When compared with ECG of 11-MAR-2020 01:24, MANUAL COMPARISON REQUIRED, DATA IS UNCONFIRMED Confirmed by CELESTE DEXTER ([id number]), industrial editor MARCIE CAPONE ([id number]) on 03/17/2020 12:09:02 PM Referred By: RAVINDER Confirmed By:CELESTE DEXTER
[2020-03-11] MEDS: Tamsulosin HCl 0.4 MG Capsule PO (17:21)
[2020-03-11] MEDS: Metoprolol Tartrate 25 MG Tablet 12.5 MG PO (22:34)
[2020-03-12] VITALS (10 sets, daily range): BP systolic 117–138; BP diastolic 64–74; PULSE 65–90; RESP 15–19; TEMP 36.5–37.1; O2SAT 91–98
[2020-03-12] MEDS: 0.9% Normal Saline 1,000 ML 100 ML IV (05:15)
[2020-03-12] MEDS: Heparin Injection (Vial) 5,000 UNIT/ML VIAL 5000 UNIT SC (05:15)
[2020-03-12 06:53] LABS: Absolute Lymphocyte Count 1.18 X10^3/uL (0.83-4.51); Absolute Neutrophil Count 4.4 X10^3/uL (2.0-7.7); Basophil# 0.05 X10^3/uL; Basophil% 0.7 % (0-1); Eosinophil# 0.15 X10^3/uL; Eosinophils% 2.2 % (0-5); Hematocrit 32.3 % (40-54); Hemoglobin 10.5 g/dL (13.0-16.5); Lymphocyte # 1.18 X10^3/ul (4.0); Lymphocyte % 17.4 % (19-41); Mean Corp Hgb Conc 32.5 g/dL (32-36); Mean Corpuscular Hgb 30.4 pg (27.0-32.0); Mean Corpuscular Volume 93.6 fL (80-94); Mean Platelet Vol. 10.5 fl (6.2-12.0); Monocyte# 0.94 X10^3/uL; Monocyte% 13.9 % (0-10); NRBC Flagged by Analyzer 0 % (0-5); Neutrophil % 65.1 % (47-70); Platelet Count 184 K/mm3 (150-450); RBC Distribution Width CV 12.9 % (11.6-14.6); RBC Distribution Width SD 44.1 fl (35.1-43.9); Red Blood Count 3.45 M/mm3 (4.6-6.2); White Blood Count 6.8 K/mm3 (4.4-11.0)
[2020-03-12 07:07] LABS: Anion Gap 7 (5-15); BUN 44 mg/dL (7-18); BUN/Creat Ratio 24.2 RATIO (10-20); Calcium,Total 7.6 mg/dL (8.5-10.1); Chloride 114 mmol/L (98-107); Creatinine, Serum 1.82 mg/dL (0.70-1.30); EST Glomerular Filtration Rate 38 mL/min (>60); Est Glom Filt Rate - Afr Amer 46 mL/min (>60); Estimated Creatinine Clearance 32.31 ml/min; Glucose 97 mg/dL (74-106); Magnesium 2.9 mg/dL (1.6-2.6); Potassium 4.1 mmol/L (3.5-5.1); Sodium Level 143 mmol/L (136-145)
--- NOTE | 2020-03-12 09:07 | PCM.PROGNOTE ---
Patient Problems: Active and Suspected Problems HIMANSHU (acute kidney injury) (Acute) Urine retention (Acute) Subjective: 80-year-old male presented to the hospital with retention of urine and elevated creatinine, catheter was placed it was a large prostate difficult Reyes placement. Urine is now draining clear he does have atrial fibrillation but he had an echo after admission. He is can be discharged home with a catheter today. I need to see him in the office for a checkup and then will plan for TURP. - Physical Exam Vitals/I&O's: Vital Signs Temp Pulse Resp BP Pulse Ox 98.3 F 90 18 128/74 H 98 03/12/20 08:30 03/12/20 08:30 03/12/20 08:30 03/12/20 08:30 03/12/20 08:30 Oxygen Delivery Method Room Air Weight: 81.9 kg Body Mass Index (BMI) 25.2 Intake and Output for Last 24 Hours 03/10/20 03/11/20 03/12/20 23:59 23:59 23:59 Intake Total 1000 / 1000 2424.77 / 2724.77 1300 / 1300 Output Total 4375 / 4375 2925 / 3675 1100 / 1100 Balance -3375 / -3375 -500.23 / -950.23 200 / 200 General: Alert, Oriented x3, Cooperative HEENT: Atraumatic, PERRLA, EOMI, Normocephalic Neck: Supple, No JVD, Negative Carotid Bruits Lungs: Clear to auscultation, Normal air movement Cardiovascular: Regular rate, No murmurs Abdomen: Bowel Sounds Present, Soft, Non Tender Extremities: No edema, Capillary Refill Less than 3 Seconds Skin: No rashes, No breakdown Musculoskeletal: No Tenderness to Palpation of Joints or Extremities Neurological: Cranial nerves II-XII grossly intact Psych/Mental Status: Normal Affect, Appropriate Laboratory Results 03/11/20 05:35: TSH 0.56 03/11/20 05:35: Iron 34 L, TIBC 243 L, Iron Saturation 14.0 L 03/12/20 06:01: WBC 6.8, RBC 3.45 L, Hgb 10.5 L, Hct 32.3 L, MCV 93.6, MCH 30.4, MCHC 32.5, RDW Std Deviation 44.1 H, RDW Coeff of Sergio 12.9, Plt Count 184, MPV 10.5, Immature Gran % (Auto) 0.700, Neut % (Auto) 65.1, Lymph % (Auto) 17.4 L, [place] % (Auto) 13.9 H, Eos % (Auto) 2.2, Baso % (Auto) 0.7, Absolute Neuts (auto) 4.4, Absolute Lymphs (auto) 1.18, Nucleated RBC % 0 03/12/20 06:01: Sodium 143, Potassium 4.1, Chloride 114 H, Carbon Dioxide 22.0, Anion Gap 7, BUN 44 H, Creatinine 1.82 H, Estim Creat Clear Calc 32.31, Est GFR (MDRD) Af Amer 46 L, Est GFR (MDRD) Non-Af 38 L, BUN/Creatinine Ratio 24.2 H, Glucose 97, Calcium 7.6 L, Magnesium 2.9 H Current Medications Acetaminophen (Tylenol) 650 mg PO Q6H PRN PRN PRN Reason: Pain Score 1-10/Temp > 100.7 F Al Hydroxide/Mg Hydroxide (Mylanta Ii) 30 ml PO Q6H PRN PRN PRN Reason: Gastric Burning Heparin Sodium (Porcine) (Heparin Na) 5,000 unit SC Q8 [facility] Last Admin: 03/12/20 05:15 Dose: 5,000 unit Documented by: Sodium Chloride () 250 mls @ 15 mls/hr IV .[id number] PRN PRN Reason: Saline Flush Sodium Chloride () 250 mls @ 15 mls/hr IV .[id number] PRN PRN Reason: Additional IVPB Infusion Sodium Chloride () 1,000 mls @ 100 mls/hr IV .Q10H [facility] Last Admin: 03/12/20 05:15 Dose: 100 mls/hr Documented by: Metoprolol Tartrate (Lopressor (Beta Magan)) 12.5 mg PO BID [facility] Last Admin: 03/11/20 22:34 Dose: 12.5 mg Documented by: Sodium Chloride () 10 - 40 ml IV UD PRN PRN Reason: SALINE FLUSH Tamsulosin HCl (Flomax) 0.4 mg PO DAILY@1730 [facility] Last Admin: 03/11/20 17:21 Dose: 0.4 mg Documented by: Medical Necessity - Tobacco Use Smoking Status: Never smoker Tobacco Use: Non-smoker Assessment/Plan All Active Problems HIMANSHU (acute kidney injury) (Acute) Urine retention (Acute) 80-year-old male with history of BPH and obstruction retention of urine
--- NOTE | 2020-03-12 09:08 | DCINST_ITS ---
Discharge Diet: Light diet - advance as tolerated Discharge Activity: Return to Normal Activity Catheter: Reyes to leg bag, Reyes to large bag Drain: [place] Allergies/Adverse Reactions: Allergies No Known Allergies Allergy (Verified 03/10/20 16:44) Medications to take at Discharge Smz/Tmp Ds [Bactrim Ds] 1 tab PO BID 03/10/20 Primary Care Physician: hSin Foster NP-C [Primary Care Provider] - Test Results: Test results from this visit will be discussed in further detail at your follow- up appointment, if applicable. Please Follow Up With: Lucian Yanez MD - [phone] When: please call to make an appointment.
[2020-03-12] MEDS: Metoprolol Tartrate 25 MG Tablet 12.5 MG PO (09:23)
[2020-03-12] MEDS: APIXABAN 2.5 MG TABLET PO (10:44)
--- NOTE | 2020-03-12 11:18 | DCINST_ITS ---
- Discharge Diagnoses Current Active Problems: Current Active and Chronic Problems HIMANSHU (acute kidney injury) (Acute) Urine retention (Acute) You will use the following diet at home:: Cardiac Your food should be the consistency of: Regular Your liquids should be the consistency of: Regular/Thin Discharge Activity: Return to Normal Activity Catheter: Reyes to leg bag, Reyes to large bag Drain: [place] Allergies/Adverse Reactions: Allergies No Known Allergies Allergy (Verified 03/10/20 16:44) Medications to take at Discharge Apixaban [Eliquis] 2.5 mg PO BID #60 tab 03/12/20 Metoprolol Tartrate [Lopressor (beta xochitl)] 12.5 mg PO BID #60 tab 03/12/20 Tamsulosin HCl [Flomax] 0.4 mg PO DAILY@1730 #30 cap 03/12/20 The following prescriptions were given: Apixaban [Eliquis] 2.5 mg PO BID #60 tab Transmission Status: Pending to [id number] Tamsulosin HCl [Flomax] 0.4 mg PO DAILY@1730 #30 cap Transmission Status: Pending to [id number] Metoprolol Tartrate [Lopressor (beta xochitl)] 12.5 mg PO BID #60 tab Transmission Status: Pending to [id number] Primary Care Physician: Shin Foster NP-C [Primary Care Provider] - Please follow up with your Primary Care Physician in: 1-2 weeks Test Results: Test results from this visit will be discussed in further detail at your follow- up appointment, if applicable. Please Follow Up With: Lucian Yanez MD - [phone] When: please call to make an appointment. Proposed Discharge Date: 03/12/20
--- NOTE | 2020-03-12 13:13 | PCM.DC.SUM ---
<Atul Oshea - Last Filed: 03/12/20 13:13> Discharge Date and Diagnosis Date of Admission: 03/10/20 Date of Discharge: 03/12/20 - Primary Discharge Diagnosis Acute Problems: Active Problems HIMANSHU 2/2 urinary retention secondary to BPH Paroxysmal atrial fibrillation with rapid ventricular response Hospital Course and Treatment Imaging Results: CT/Abdomen/Pelvis without Cont IMPRESSION: Bilateral hydroureteronephrosis secondary to massive bladder distention which extends into the mid abdomen to the right of the midline displacing loops of small and large bowel. Etiology is indeterminate although likely related to prostatic enlargement however clinical correlation is recommended Echo: Interpretation Summary Left ventricular systolic function is normal. The estimated ejection fraction is 65 %. The right atrium is mildly enlarged. Mild mitral valve prolapse, posterior leaflet Trivial mitral valve insufficiency. Mild tricuspid valve insufficiency. Moderate focal aortic valve calcification. Trivial aortic valve insufficiency. Right ventricular systolic pressure estimated to be 42 mmHg. Unable to assess diastolic dysfunction. Consults: Urology - Beau Operations: None Procedures: 2-D Echocardiogram Summary of Care Provided: Hospital Course: The patient is a 80 year old M with no significant pmhx who presented to the ER with c/o abdominal and flank pain. He was found to have severe HIMANSHU with BUN [address] abdomen showed massive bladder distention and enlarged prostate. A castro catheter was placed and urology was consulted. He was admitted to the med surg floor. Nephrology was consulted and felt the HIMANSHU was due to the bladder distention. He had immediate relief of his pain. He developed afib with RVR while on med surg. He was transferred to the PCU and treatedf with IV lopressor and cardizem drip. He did convert to NSR and rate was controlled. He did however continue to go in and out of Afib. He has a chadvasc score of 2 so eliquis was started. He was transitioned to only oral metoprolol and rate was well controlled. He admitted he thought he had afib about ten years ago which was discovered by a blood bank, however only sought treatment for it with a chiropracter who placed him on ivory tablets. An echo was obtained with results as above. He remained stable on oral metoprolol. He was discharged home in stable condition. He will need to maintain the castro until follow up with urology as directed. He should follow up with his PCP in 1-2 weeks. The patient was seen by Atul Oshea PA-C under the supervision of Dr. Moore. [] - Physical Exam Vitals/I&O's: Vital Signs Temp Pulse Resp BP Pulse Ox 98.3 F 75 18 128/74 H 94 03/12/20 08:30 03/12/20 10:00 03/12/20 08:30 03/12/20 08:30 03/12/20 11:12 Oxygen Delivery Method Room Air Weight: 180 lb 8.937 oz Body Mass Index (BMI) 25.2 Intake and Output for Last 24 Hours 03/10/20 03/11/20 03/12/20 23:59 23:59 23:59 Intake Total 1000 / 1000 2424.77 / 2724.77 2970 / 2970 Output Total 4375 / 4375 2925 / 3675 2700 / 2700 Balance -3375 / -3375 -500.23 / -950.23 270 / 270 General: Alert, Oriented x3, Cooperative HEENT: Atraumatic, PERRLA, EOMI, Normocephalic Neck: Supple, No JVD, Negative Carotid Bruits Lungs: Clear to auscultation, Normal air movement Cardiovascular: Regular rate, No murmurs, Irregular Rate Abdomen: Bowel Sounds Present, Soft, Non Tender Extremities: No edema, Capillary Refill Less than 3 Seconds Skin: No rashes, No breakdown Musculoskeletal: No Tenderness to Palpation of Joints or Extremities Neurological: Cranial nerves II-XII grossly intact Psych/Mental Status: Normal Affect, Appropriate, Alert and oriented to time, place, person, mood and affect Laboratory Results 03/12/20 06:01: WBC 6.8, RBC 3.45 L, Hgb 10.5 L, Hct 32.3 L, MCV 93.6, MCH 30.4, MCHC 32.5, RDW Std Deviation 44.1 H, RDW Coeff of Sergio 12.9, Plt Count 184, MPV 10.5, Immature Gran % (Auto) 0.700, Neut % (Auto) 65.1, Lymph % (Auto) 17.4 L, [place] % (Auto) 13.9 H, Eos % (Auto) 2.2, Baso % (Auto) 0.7, Absolute Neuts (auto) 4.4, Absolute Lymphs (auto) 1.18, Nucleated RBC % 0 03/12/20 06:01: Sodium 143, Potassium 4.1, Chloride 114 H, Carbon Dioxide 22.0, Anion Gap 7, BUN 44 H, Creatinine 1.82 H, Estim Creat Clear Calc 32.31, Est GFR (MDRD) Af Amer 46 L, Est GFR (MDRD) Non-Af 38 L, BUN/Creatinine Ratio 24.2 H, Glucose 97, Calcium 7.6 L, Magnesium 2.9 H Current Medications Acetaminophen (Tylenol) 650 mg PO Q6H PRN PRN PRN Reason: Pain Score 1-10/Temp > 100.7 F Al Hydroxide/Mg Hydroxide (Mylanta Ii) 30 ml PO Q6H PRN PRN PRN Reason: Gastric Burning Apixaban (Eliquis) 2.5 mg PO BID [facility] Last Admin: 03/12/20 10:44 Dose: 2.5 mg Documented by: Sodium Chloride () 250 mls @ 15 mls/hr IV .[id number] PRN PRN Reason: Saline Flush Sodium Chloride () 250 mls @ 15 mls/hr IV .[id number] PRN PRN Reason: Additional IVPB Infusion Metoprolol Tartrate (Lopressor (Beta Magan)) 12.5 mg PO BID [facility] Last Admin: 03/12/20 09:23 Dose: 12.5 mg Documented by: Sodium Chloride () 10 - 40 ml IV UD PRN PRN Reason: SALINE FLUSH Tamsulosin HCl (Flomax) 0.4 mg PO DAILY@1730 [facility] Last Admin: 03/11/20 17:21 Dose: 0.4 mg Documented by: Discharge Diet: Low fat/ Low Cholesterol, 2000 mg Sodium Diet Discharge Activity: Return to Normal Activity Catheter: Castro to leg bag, Castro to large bag Drain: [place] Home Medications: Medications to take at Discharge Apixaban [Eliquis] 2.5 mg PO BID #60 tab 03/12/20 Metoprolol Tartrate [Lopressor (beta magan)] 12.5 mg PO BID #60 tab 03/12/20 Tamsulosin HCl [Flomax] 0.4 mg PO DAILY@1730 #30 cap 03/12/20 Following Prescrptions Were Given to Patient: Apixaban [Eliquis] 2.5 mg PO BID #60 tab [id number] Tamsulosin HCl [Flomax] 0.4 mg PO DAILY@1730 #30 cap Transmission [facility]: [facility] Metoprolol Tartrate [Lopressor (beta magan)] 12.5 mg PO BID #60 tab Transmission [facility]: [facility] Primary Care Physician: Shin Foster NP-C [Primary Care Provider] - Please follow up with your Primary Care Physician in: 1-2 weeks Please Follow Up With: Lucian Yanez MD When: please call to make an appointment. Please Follow Up With: Shin Foster NP-C Disposition: Home Minutes spent on discharge:: 35 Patient Condition:: Stable Medical Necessity - Tobacco Use Smoking Status: Never smoker Tobacco Use: Non-smoker Meaningful Use Info Meaningful Use Diagnoses (Choose all that apply): None applicable <OscarGutierrezAbdulaziz - Last Filed: 03/12/20 16:22> Hospital Course and Treatment Summary of Care Provided: This patient was seen in conjunction with Atul DOWNING. I have independently interviewed and examined the patient and reviewed pertinent history, examination findings, laboratory and plan of management. I have reviewed the note and agree with the documented findings with the few additional points. In brief, patient is admitted for abdominal and flank pain, found to be acute kidney injury with BUN 102 and creatinine 135 with acute retention of urine. CT abdomen shows bladder distention with enlarged BPH suggestive of bladder outlet obstruction. Castro catheter was inserted and urologist and hog counter were consulted. HIMANSHU secondary to postobstructive uropathy, BPH. Patient also had A. fib with RVR and was transferred to [facility] floor. He was treated with IV Lopressor and Cardizem drip. Patient has paroxysmal A. fib as he was told he has arrhythmia about 10 years ago but not sure about the diagnosis of arrhythmia. Patient on metoprolol 12.5 mg p.o. twice daily and Eliquis 2.5 mg twice daily. Patient had echo done and reported as EF 65% with normal left atrium but mildly enlarged right atrium. Trivial MR. Mild tricuspid insufficiency, RVSP 42 mmHg. Patient is being discharged with Castro catheter and follow-up with urologist Dr. Yanez in 1 week to schedule TURP. Patient will also need formal cardiology risk stratification as an outpatient for history of A. fib. Patient was advised to discontinue Eliquis 2 days before prior to surgery I have discussed my assessment with Atul DOWNING and orders have been reviewed. [] - Physical Exam Vitals/I&O's: Vital Signs Temp Pulse Resp BP Pulse Ox 98.7 F 74 18 138/74 H 97 03/12/20 15:17 03/12/20 15:17 03/12/20 15:17 03/12/20 15:17 03/12/20 15:17 Oxygen Delivery Method Room Air Weight: 180 lb 8.937 oz Body Mass Index (BMI) 25.2 Intake and Output for Last 24 Hours 03/10/20 03/11/20 03/12/20 23:59 23:59 23:59 Intake Total 1000 / 1000 2424.77 / 2724.77 2970 / 2970 Output Total 4375 / 4375 2925 / 3675 2700 / 2700 Balance -3375 / -3375 -500.23 / -950.23 270 / 270 General: Alert, Oriented x3, Cooperative HEENT: Atraumatic, PERRLA, EOMI, Normocephalic Neck: Supple, No JVD, Negative Carotid Bruits Lungs: Clear to auscultation, Normal air movement Cardiovascular: Normal S1, Normal S2, No murmurs, Irregular Rate Abdomen: Bowel Sounds Present, Soft, Non Tender, Non-Distended Extremities: No edema, Capillary Refill Less than 3 Seconds Skin: No rashes, No breakdown Musculoskeletal: No Tenderness to Palpation of Joints or Extremities, Arthritic Changes Neurological: Cranial nerves II-XII grossly intact Psych/Mental Status: Normal Affect, Appropriate Laboratory Results 03/12/20 06:01: WBC 6.8, RBC 3.45 L, Hgb 10.5 L, Hct 32.3 L, MCV 93.6, MCH 30.4, MCHC 32.5, RDW Std Deviation 44.1 H, RDW Coeff of Sergio 12.9, Plt Count 184, MPV 10.5, Immature Gran % (Auto) 0.700, Neut % (Auto) 65.1, Lymph % (Auto) 17.4 L, [place] % (Auto) 13.9 H, Eos % (Auto) 2.2, Baso % (Auto) 0.7, Absolute Neuts (auto) 4.4, Absolute Lymphs (auto) 1.18, Nucleated RBC % 0 03/12/20 06:01: Sodium 143, Potassium 4.1, Chloride 114 H, Carbon Dioxide 22.0, Anion Gap 7, BUN 44 H, Creatinine 1.82 H, Estim Creat Clear Calc 32.31, Est GFR (MDRD) Af Amer 46 L, Est GFR (MDRD) Non-Af 38 L, BUN/Creatinine Ratio 24.2 H, Glucose 97, Calcium 7.6 L, Magnesium 2.9 H Inpatient E&M: [id number] Disch Hosp
== END 2020-03-12 15:42 | disposition home or self-care (01) | DRG 683 ==
LOC: ED 17:59 → MS3 18:43 → PCU 03-11 09:16
PROVIDERS: Family Medicine; Physician Assistant; Admitting Provider Internal Medicine; Emergency Provider Emergency Medicine; PCP Nurse Practitioner Primary Care; Visit Provider Internal Medicine
DX: N17.9 Acute kidney failure, unspecified (principal); N13.8 Other obstructive and reflux uropathy; E87.1 Hypo-osmolality and hyponatremia; N40.1 Benign prostatic hyperplasia with lower urinary tract symptoms; R33.8 Other retention of urine; R39.12 Poor urinary stream; N32.89 Other specified disorders of bladder; N13.30 Unspecified hydronephrosis; E87.70 Fluid overload, unspecified; I48.0 Paroxysmal atrial fibrillation; D64.9 Anemia, unspecified; R03.0 Elevated blood-pressure reading, without diagnosis of hypertension; Z66 Do not resuscitate
CPT/HCPCS: 36415; 74176; 80048; 80053; 81001; 82570; 83540; 83550; 83735; 84100; 84300; 84443; 85025; 93005; 93306; 97161; 97165; 97802; 99251; 99285; J7030; C1769; G0463; J2405

== ENCOUNTER 2020-04-23 09:32 | Emergency (ER) | payer OTHER, SELFPAY ==
[2020-03-10 20:23] VITALS: BMI 25.2
[2020-04-23 09:34] VITALS: BP 147/92; PULSE 61; RESP 17; TEMP 36.3; O2SAT 96; BMI 24.0
[2020-04-23 09:53] VITALS: BP 147/92; PULSE 61; RESP 17; TEMP 36.3; O2SAT 96
--- NOTE | 2020-04-23 09:55 | ED.VIS.GEN ---
History of Present Illness Chief Complaint: Reyes C/O Narrative: Patient presenting due to a Reyes catheter malfunction. Patient has had a Reyes catheter in place since February secondary to urinary retention. He has follow-up with urology coming on . Patient reports that the last time that his catheter drained was about 10 PM last night. He is having suprapubic fullness and pain. Patient denies any flank pain. He denies any fevers. Patient tells me that he tried to unclog his catheter by putting cayenne pepper in it. Past Medical History - Allergies and Home Meds Allergies/Adverse Reactions: Allergies No Known Allergies Allergy (Verified 04/23/20 09:33) Primary Care Physician: Shin Foster NP-C [Primary Care Provider] - Past Medical History: - - BPH Surgical History: no surgical history Lives: Spouse/ Significant Other Smoking Status: Never smoker Alcohol: None Drugs: None - Family History Maternal Family History: Reports: No pertinent history Paternal Family History: Reports: No pertinent history Review of Systems All systems negative except as indicated General: Denies: Chills, Fever, Sweats Eyes: Denies: Visual changes - bilaterally, Diplopia ENT: Denies: Rhinorrhea, Sore throat Cardiovascular: Denies: Chest pain, Palpitations Respiratory: Denies: Dyspnea, Cough, Dyspnea on exertion Gastrointestinal: Denies: Abdominal pain, Nausea, Vomiting, Diarrhea, Melena, Hematochezia Genitourinary: Reports: - - Suprapubic pain Musculoskeletal: Denies: Back pain, Extremity Pain Skin: Denies: Rash, Wounds Neurological: Denies: Headache, Weakness, Numbness Physical Exam Vital Signs/Narrative: Vital Signs Temp Pulse Resp BP Pulse Ox 04/23/20 09:53 97.4 F L 61 17 147/92 H 96 04/23/20 09:34 97.4 F L 61 17 147/92 H 96 Inital Vital Signs reviewed: Yes General: Well nourished, Well developed Head: Normocephalic, Atraumatic Eyes: EOMI ENT: Moist mucous membranes Cardiovascular: Regular rate, Regular rhythm Respiratory: No distress Abdomen: Tender - Suprapubic fullness and tenderness with no guarding or rebound. Abdomen is otherwise soft. : - - Reyes catheter is in place Extremities: Nontender Skin: Normal color, No rash Neurological: Alert, Oriented x3 Psychological: Normal affect Diagnostic/Tx/Re-eval - Medical Decision Making Patient presented due to Reyes catheter malfunction. This was changed out by nursing, and the patient immediately had drainage of almost 1500 cc of urine. He had improvement of his symptoms. Urine will be sent for culture. Patient will follow-up with urology on . ED Disposition - Plan for ED Patient: Disposition: Home or Assisted Living Diagnosis: Malfunction of Reyes catheter Instructions: ED Reyes Catheter Care Referrals: Lucian Yanez MD [STAFF PHYSICIAN] - Keep Crissy appointment
== END 2020-04-23 10:17 | disposition home or self-care (01) ==
LOC: ED 10:09
PROVIDERS: Emergency Provider Emergency Medicine; PCP Nurse Practitioner Primary Care
DX: T83.098A Other mechanical complication of other urinary catheter, initial encounter (principal); N40.1 Benign prostatic hyperplasia with lower urinary tract symptoms; R33.8 Other retention of urine
CPT/HCPCS: 51702; 87077; 87086; 87088; 87186; 99283

== ENCOUNTER 2020-05-01 13:58 | Emergency (ER) | payer OTHER, SELFPAY ==
[2020-05-01 13:59] VITALS: BP 156/72; PULSE 42; RESP 16; TEMP 36.3; O2SAT 97; BMI 25.1
[2020-05-01 14:02] VITALS: BP 156/72; PULSE 44; RESP 17; O2SAT 97
--- NOTE | 2020-05-01 14:06 | ED.VIS.GEN ---
History of Present Illness Chief Complaint: Reyes C/O Informant: Patient Onset: Today Context: Sudden Onset Timing: Continuous Quality: Reyes not functioning Location: Indwelling Current Severity: Mild Maximum Severity: Mild Worsened by: Unknown Relieved by: Nothing Associated Symptoms: Feels as if bladder is filling Narrative: Patient elderly male who presents because of malfunctioning Reyes. He states he is had no urine output since 3 AM. He feels that his bladder is full. He has no complaints other than malfunctioning Reyes. Prior similar symptoms: Yes Recent Illness/Hospitalization: No - Past Medical History (1) HIMANSHU (acute kidney injury) Status: Acute (2) Urine retention Status: Acute Past Medical History - Allergies and Home Meds Allergies/Adverse Reactions: Allergies No Known Allergies Allergy (Verified 05/01/20 13:58) Primary Care Physician: Shin Foster NP-C [Primary Care Provider] - Prior records reviewed: Yes Surgical History: no surgical history Lives: With Family Smoking Status: Never smoker Alcohol: None Drugs: None - Family History Maternal Family History: Reports: No pertinent history Paternal Family History: Reports: No pertinent history Review of Systems General: Denies: Chills, Fever, Malaise Genitourinary: Reports: - - Malfunctioning Reyes. Denies: Dysuria, Hematuria, Frequency Musculoskeletal: Denies: Myalgias, Arthralgias, Back pain Hematologic: Denies: Easy bruising, Easy bleeding Physical Exam Vital Signs/Narrative: Vital Signs Temp Pulse Resp BP Pulse Ox 05/01/20 14:02 44 L 17 156/72 H 97 05/01/20 13:59 97.4 F L 42 L 16 156/72 H 97 Inital Vital Signs reviewed: Yes General: Well nourished, Well developed, No Acute Distress Head: Normocephalic, Atraumatic Eyes: Perrl, EOMI. Negative for: Pale conjunctiva Cardiovascular: Regular rate, Regular rhythm Respiratory: No distress Abdomen: Soft, Nontender, Nondistended, Normal bowel sounds Neurological: Alert, Oriented x3, Cranial nerves II-XII grossly intact, Normal Strength, Normal Sensation, Normal Gait Psychological: Normal affect Diagnostic/Tx/Re-eval - Medical Decision Making Since patient describes bladder distention and no urine output order was placed to have nurse change Reyes. Nurse to Place Reyes. Significant body urine drained. Plan is to discharge to home ED Disposition - Plan for ED Patient: Disposition: Home or Assisted Living Diagnosis: Reyes catheter problem Instructions: Caring for Your Indwelling Urinary Catheter Referrals: Shin Foster NP-C [Primary Care Provider] - As Needed
[2020-05-01 14:55] VITALS: RESP 18
== END 2020-05-01 15:21 | disposition home or self-care (01) ==
LOC: ED 14:36
PROVIDERS: Emergency Provider Emergency Medicine; PCP Nurse Practitioner Primary Care
DX: T83.9XXA Unspecified complication of genitourinary prosthetic device, implant and graft, initial encounter (principal)
CPT/HCPCS: 51702; 99283

== ENCOUNTER 2020-05-06 17:00 | Emergency (ER) | payer OTHER, SELFPAY ==
[2020-05-06 17:01] VITALS: BP 151/99; PULSE 63; RESP 18; TEMP 36.6; O2SAT 96; BMI 24.0
--- NOTE | 2020-05-06 17:12 | ED.DCSUM_ITS ---
- ER Visit Summary Date of Service: 05/06/20 Chief Complaint: [Concern for Reyes catheter not draining] History of Present Illness: The patient is a 80 M [presents the emergency department with Reyes catheter that is not draining since this morning. Patient denies any abdominal pain. Patient states that he stopped drinking fluid because it was not draining. He has had the catheter for about 6 or 8 weeks and has had it replaced several times in that time period. Patient denies any fever. He denies any blood in his urine. Otherwise he has no complaints.] Physical Examination: [HEENT-PERRLA, EOMI. Cranial nerves II through XII grossly intact. TMs clear. Mucous membranes moist. No adenopathy. Cardiovascular-regular rate and rhythm without murmur or ectopy Lungs-clear to auscultation, chest wall stable without crepitus or subcu emphysema Abdomen-normoactive bowel sounds, soft, nontender, no rebound or rigidity, no peritoneal signs. exam-patient has Reyes catheter in place. No blood at the urethral meatus noted. There is no urine in the leg bag noted. Extremities-intact ?4, normal range of motion, normal pulses, atraumatic] Test Results: [Urinalysis obtained showed 500 cassette esterase as well as positive nitrites as well as greater than 100 WBCs and +2 bacteria.] Urine culture results ordered and pending. Emergency Department Course and Treatment: [She was given Keflex 500 mg p.o. Patient had a new Reyes catheter placed. On Reyes catheter placement he had over thousand cc of urine obtained immediately that was cloudy.] Treatment Plan: [We will be treated with Keflex. Patient will be instructed to follow-up with his primary care physician in 3 to 5 days.] Disposition: [Discharged home in stable condition] Impression: [Reyes catheter replacement secondary to retention Urinary tract infection] This note was generated with [employer] dictation software. It may contain incorrect words, spelling, and punctuation that were not noted in review of the chart prior to signing ED Disposition - Plan for ED Patient: Referrals: Shin Foster NP-C [Primary Care Provider] -
[2020-05-06 17:28] VITALS: BP 151/99; PULSE 63; RESP 18; TEMP 36.6; O2SAT 96
[2020-05-06 17:57] LABS: Mucous, Urine 0 SEEN /hpf (<or=2+); Red Blood Cells-Urine 0 SEEN /hpf (0-5); Squamous Epithelial Cells - UA 0 SEEN /hpf (0-5)
[2020-05-06 18:03] LABS: Color, Urine Yellow (Yellow); Glucose, Dipstick Normal (Normal); Ketone-Dipstick Negative (Negative); Leukocyte Esterase-Dipstick 500 /ul (Negative); Nitrite-Dipstick Positive (Negative); Occult Blood-Urine 150 /ul (Negative); Protein-Dipstick 30 mg/dl (Negative); Specific Gravity, Urine 1.015 (1.002-1.030); Urine Bilirubin Dipstick Negative (Negative); Urine Clarity Cloudy (Clear); Urine Urobilinogen Normal (Normal)
[2020-05-06 18:14] LABS: Bacteria 2+ /hpf (None Seen); White Blood Cells >100 SEEN /hpf (0-5)
--- NOTE | 2020-05-06 18:29 | ED.DEP ---
ED Disposition - Plan for ED Patient: Instructions: Caring for Your Indwelling Urinary Catheter, ED CYSTITIS Male Adult Prescriptions: Cephalexin [Keflex] 500 mg PO Q6 #40 cap Transmission Status: Pending to [id number] Referrals: Shin Foster NP-C [Primary Care Provider] - 3-5 Days
[2020-05-06] MEDS: Cephalexin 250 MG Capsule 500 MG PO (18:35)
[2020-05-06 18:36] VITALS: BP 149/90; PULSE 72; RESP 18; TEMP 36.4; O2SAT 98
== END 2020-05-06 18:49 | disposition home or self-care (01) ==
PROVIDERS: Emergency Provider Emergency Medicine; PCP Nurse Practitioner Primary Care
DX: T83.098A Other mechanical complication of other urinary catheter, initial encounter (principal); N39.0 Urinary tract infection, site not specified
CPT/HCPCS: 51702; 81001; 87077; 87086; 87088; 87186; 99284

== ENCOUNTER 2020-05-21 10:36 | Emergency (ER) | payer OTHER, SELFPAY ==
[2020-05-21 10:36] VITALS: BP 143/90; PULSE 91; RESP 18; TEMP 36.3; O2SAT 98; BMI 23.9
--- NOTE | 2020-05-21 10:54 | ED.DCSUM_ITS ---
History of Present Illness Informant: Patient Onset: Today Narrative: 80-year-old male presents with complaints that his urinary catheter is not draining since he woke up this morning. He also had a sensation of abdominal fullness. The catheter has been in place for a month. He thinks it is due to an enlarged prostate. It just started draining now that he is in the ED. Denies fevers, chills, nausea, vomiting, abdominal pain, back pain, or hematuria. <Sophy Chan - Last Filed: 05/21/20 12:12> <Aylin Smith - Last Filed: 05/21/20 17:04> Chief Complaint: Complaint Past Medical History Surgical History: no surgical history Smoking Status: Never smoker - Family History Maternal Family History: Reports: No pertinent history Paternal Family History: Reports: No pertinent history <Sophy Chan - Last Filed: 05/21/20 12:12> <Aylin Smith - Last Filed: 05/21/20 17:04> - Allergies and Home Meds Allergies/Adverse Reactions: Allergies No Known Allergies Allergy (Verified 05/21/20 10:39) Primary Care Physician: Lucian Yanez MD [STAFF PHYSICIAN] - Shin Foster NP, UNDERGROUND PRODUCTION FOREPERSON-C [Primary Care Provider] - Review of Systems General: Denies: Chills, Fever, Sweats Eyes: Denies: Visual changes - bilaterally, Diplopia ENT: Denies: Rhinorrhea, Sore throat Cardiovascular: Denies: Chest pain, Palpitations Respiratory: Denies: Dyspnea, Cough, Dyspnea on exertion Gastrointestinal: Denies: Abdominal pain, Nausea, Vomiting, Diarrhea, Melena, Hematochezia Genitourinary: Denies: Dysuria, Hematuria, Frequency Musculoskeletal: Denies: Back pain, Extremity Pain Skin: Denies: Rash, Wounds Neurological: Denies: Headache, Weakness, Numbness <Sophy Chan - Last Filed: 05/21/20 12:12> Physical Exam Vital Signs/Narrative: Vital Signs Temp Pulse Resp BP Pulse Ox 05/21/20 10:36 97.4 F L 91 18 143/90 H 98 General: Well nourished, Well developed, No Acute Distress Head: Normocephalic, Atraumatic Eyes: EOMI Cardiovascular: Regular rate, Regular rhythm, No murmurs Respiratory: No distress, CTA bilaterally Abdomen: Soft, Nontender, Nondistended, Normal bowel sounds Extremities: No edema Skin: Normal color, No rash Neurological: Alert, Oriented x3, Cranial nerves II-XII grossly intact Psychological: Normal affect, Normal Mood <Sophy Chan - Last Filed: 05/21/20 12:12> Diagnostic/Tx/Re-eval Laboratory Data 05/21/20 11:33 Urine Color Yellow Urine Clarity Sl. Cloudy Urine pH 7.0 Ur Specific [place] 1.010 Urine Protein 15 H Urine Glucose (UA) Normal Urine Ketones Negative Urine Occult Blood 150 H Urine Nitrite Negative Urine Bilirubin Negative Urine Urobilinogen Normal Ur Leukocyte Esterase 500 H Urine RBC 0-5 SEEN Urine WBC 25-50 SEEN Ur Squamous Epith Cells 0-5 SEEN Urine Bacteria 1+ Urine Mucus 0 SEEN - Medical Decision Making Patient presented with complaint his urinary catheter was not draining. Bag was full in the ED. Bladder scanner showed 200 cc retained. Reyes was changed and patient had 700 cc output. Urinalysis shows UTI. His last culture was checked and it is sensitive to Bactrim. He was given a prescription for this and return precautions as urology follow-up. Patient was agreeable and discharged home in stable condition. Sophy DOWNING <Sophy Chan - Last Filed: 05/21/20 12:12> - Medical Decision Making Patient seen in conjunction with CHANG. I performed my own independent HPI and physical exam. Patient has decreased drainage from his Reyes catheter which he has secondary to BPH and increased lower abdominal discomfort. Reyes catheter is exchanged and patient has a large amount of urine out. He has resolution of his symptoms. Urine is consistent with uti. Patient placed on Bactrim per prior culture results. Will will follow-up with urologist. Exam is benign. <Aylin Smith - Last Filed: 05/21/20 17:04> ED Disposition <Sophy Chan - Last Filed: 05/21/20 12:12> <Aylin Smith - Last Filed: 05/21/20 17:04> - Plan for ED Patient: Disposition: Home or Assisted Living Diagnosis: Urine retention, UTI (urinary tract infection) Instructions: ED CYSTITIS Male Adult Prescriptions: Smz/Tmp Ds [Bactrim Ds] 1 tab PO BID #14 tab Transmission Status: Received by [facility] Referrals: Shin Foster NP, UNDERGROUND PRODUCTION FOREPERSON-C [Primary Care Provider] - Lucian Yanez MD [STAFF PHYSICIAN] -
[2020-05-21 11:38] LABS: Mucous, Urine 0 SEEN /hpf (<or=2+)
--- NOTE | 2020-05-21 11:39 | ED.RN ---
pt was having cloudy well urinary drainage from his catheter after saying that he has had decreased output this morning from last night. attempted to change leg bag to obtain a urine specimen, noted minimal to no drainage from catheter at that time. attempted to irrigate with 60ml of normal saline. the catheter would not flush. bladder scan was obtained showing over 200ml of urine in the bladder. dr. marroquin and esperanza billy pa informed. a new 16 ethiopian catheter was inserted with three small clots coming out along with sediment and what appears to be pus. approximately over 500ml of urine quickly drained after placement of new catheter.
[2020-05-21 11:45] LABS: Color, Urine Yellow (Yellow); Glucose, Dipstick Normal (Normal); Ketone-Dipstick Negative (Negative); Leukocyte Esterase-Dipstick 500 /ul (Negative); Nitrite-Dipstick Negative (Negative); Occult Blood-Urine 150 /ul (Negative); Protein-Dipstick 15 mg/dl (Negative); Urine Bilirubin Dipstick Negative (Negative); Urine Clarity Sl. Cloudy (Clear); Urine Urobilinogen Normal (Normal)
[2020-05-21 11:51] LABS: Bacteria 1+ /hpf (None Seen); Red Blood Cells-Urine 0-5 SEEN /hpf (0-5); Squamous Epithelial Cells - UA 0-5 SEEN /hpf (0-5); White Blood Cells 25-50 SEEN /hpf (0-5)
--- NOTE | 2020-05-21 12:38 | ED.RN ---
LEG BAG PLACED TO URINARY CATHETER AND PT DISCHARGED WITH COSME BAG. PT INSTRUCTED ON PROPER CHANGING OF URINARY CATHETER MATERIALS AND THE IMPORTANCE OF CLEANLINESS. PT VERBALIZED UNDERSTANDING.
== END 2020-05-21 12:40 | disposition home or self-care (01) ==
PROVIDERS: Emergency Provider Physician Assistant; PCP Nurse Practitioner Primary Care
DX: N40.1 Benign prostatic hyperplasia with lower urinary tract symptoms (principal); R33.8 Other retention of urine; N39.0 Urinary tract infection, site not specified
CPT/HCPCS: 51702; 81001; 87077; 87086; 87088; 87186; 99283; A4216

== ENCOUNTER 2020-06-06 07:20 | Emergency (ER) | payer OTHER, SELFPAY ==
[2020-06-06 07:22] VITALS: BP 129/91; PULSE 56; RESP 16; TEMP 36.3; O2SAT 97; BMI 23.3
--- NOTE | 2020-06-06 07:52 | ED.RN ---
PT ARRIVES WITH URINARY CATHETER IN PLACE. IRRIGATION ATTEMPTED BY THIS NURSE WITH NO RESULTS. CATHETER WAS REMOVED AND 18F COSME WAS PLACED WITH 800 ML URINARY RETURN OF YELLOW CLOUDY URINE WITH MUCOUS THREADS. PT VERBALIZED RELIEF OF BLADDER DISCOMFORT.
[2020-06-06 07:54] LABS: Mucous, Urine 0 SEEN /hpf (<or=2+); Squamous Epithelial Cells - UA 0 SEEN /hpf (0-5)
[2020-06-06 08:02] LABS: Color, Urine Yellow (Yellow); Glucose, Dipstick Normal (Normal); Ketone-Dipstick 5 mg/dl (Negative); Leukocyte Esterase-Dipstick 500 /ul (Negative); Nitrite-Dipstick Positive (Negative); Occult Blood-Urine 250 /ul (Negative); Protein-Dipstick 500 mg/dl (Negative); Specific Gravity, Urine 1.015 (1.002-1.030); Urine Bilirubin Dipstick Negative (Negative); Urine Clarity Turbid (Clear); Urine Urobilinogen Normal (Normal)
[2020-06-06 08:14] LABS: Bacteria 2+ /hpf (None Seen); Red Blood Cells-Urine 25-50 SEEN /hpf (0-5); White Blood Cells 50-100 SEEN /hpf (0-5)
--- NOTE | 2020-06-06 08:16 | ED.VIS.GEN ---
History of Present Illness Chief Complaint: Complaint Informant: Patient Onset: Today Current Severity: Mild Maximum Severity: Mild Narrative: Patient presents secondary to Reyes catheter not adequately draining. Patient states that he changed his catheter bag around 330 this morning and has not had much output since that time. He does feel like his bladder is full and distended. - Past Medical History (1) A-fib Status: Chronic (2) BPH (benign prostatic hyperplasia) Status: Chronic Past Medical History - Allergies and Home Meds Allergies/Adverse Reactions: Allergies No Known Allergies Allergy (Verified 05/21/20 10:39) Primary Care Physician: Shin Foster PHOTOVOLTAIC TESTING TECHNICIAN [Other] Surgical History: no surgical history Smoking Status: Never smoker - Family History Maternal Family History: Reports: No pertinent history Paternal Family History: Reports: No pertinent history Review of Systems General: Denies: Chills, Fever Eyes: Denies: Visual changes - bilaterally ENT: Denies: Bilateral ear pain Cardiovascular: Denies: Chest pain Respiratory: Denies: Dyspnea, Cough Gastrointestinal: Reports: Abdominal pain. Denies: Vomiting Musculoskeletal: Denies: Extremity Pain Skin: Denies: Rash Neurological: Denies: Headache Hematologic: Denies: Easy bruising, Easy bleeding Allergy: Denies: Uticaria Physical Exam Vital Signs/Narrative: Vital Signs Temp Pulse Resp BP Pulse Ox 06/06/20 07:22 97.4 F L 56 L 16 129/91 H 97 Inital Vital Signs reviewed: Yes General: Well nourished, Well developed Head: Normocephalic ENT: Moist mucous membranes Neck: Supple Cardiovascular: Regular rate, Regular rhythm Respiratory: No distress, CTA bilaterally Abdomen: Soft, Tender - Suprapubic tenderness to palpation. Back: Nontender Extremities: Nontender Skin: Normal color Neurological: Alert, Oriented x3 Psychological: Normal affect Diagnostic/Tx/Re-eval Laboratory Results 06/06/20 07:45 Urine Color Yellow Urine Clarity Turbid Urine pH 7.0 Ur Specific [place] 1.015 Urine Protein 500 H Urine Glucose (UA) Normal Urine Ketones 5 H Urine Occult Blood 250 H Urine Nitrite Positive H Urine Bilirubin Negative Urine Urobilinogen Normal Ur Leukocyte Esterase 500 H Urine RBC 25-50 SEEN Urine WBC 50-100 SEEN Ur Squamous Epith Cells 0 SEEN Urine Bacteria 2+ Urine Mucus 0 SEEN - Medical Decision Making Attempts to irrigate the Reyes catheter were not successful. Reyes catheter was switched out and 800 cc of urine was drained. Patient reports improvement in his symptoms. Patient was seen earlier this month for similar complaint. Urine culture at that time showed Morganella, resistant to Bactrim. Patient was treated with Bactrim and I do not see any note that the antibiotic was switched. Urine culture was sensitive to Cipro and will he will be treated with a course of Cipro at this time. ED Disposition - Plan for ED Patient: Disposition: Home or Assisted Living Diagnosis: Urinary retention, Reyes catheter problem Instructions: ED CYSTITIS Male Adult, ED Urinary Retention Male, ED Reyes Catheter Care Prescriptions: Ciprofloxacin [Cipro] 500 mg PO BID #14 tab Transmission Status: Pending to [id number] Referrals: Shin Foster NP [Other] - 5-7 Days
== END 2020-06-06 08:48 | disposition home or self-care (01) ==
PROVIDERS: Emergency Provider Emergency Medicine
DX: T83.098A Other mechanical complication of other urinary catheter, initial encounter (principal); N40.1 Benign prostatic hyperplasia with lower urinary tract symptoms; R33.8 Other retention of urine
CPT/HCPCS: 81001; 99282

== ENCOUNTER 2020-07-03 16:25 | Emergency (ER) | payer OTHER, SELFPAY ==
[2020-07-03 16:25] VITALS: BP 140/92; PULSE 68; RESP 16; TEMP 36.3; O2SAT 97; BMI 23.3
--- NOTE | 2020-07-03 16:47 | ED.VIS.GEN ---
History of Present Illness Chief Complaint: Complaint Narrative: This patient is an 80-year-old male who has had an indwelling Reyes for a few months due to urinary retention. His current Reyes is about 1 month old. It has not drained since about noon. He complains of some mild suprapubic discomfort but really denies any pain or any recent illness no fevers no vomiting. Past Medical History - Allergies and Home Meds Allergies/Adverse Reactions: Allergies No Known Allergies Allergy (Verified 07/03/20 16:27) Primary Care Physician: Shin Foster STRUCTURAL TECHNICIAN [Other] Past Medical History: - - BPH and urinary retention Surgical History: no surgical history Smoking Status: Never smoker - Family History Maternal Family History: Reports: No pertinent history Paternal Family History: Reports: No pertinent history Review of Systems All systems negative except as indicated General: Denies: Fever Eyes: Denies: Visual changes - bilaterally Cardiovascular: Denies: Chest pain Respiratory: Denies: Dyspnea Gastrointestinal: Denies: Abdominal pain, Nausea, Vomiting Genitourinary: Reports: - - Urinary retention Musculoskeletal: Denies: Myalgias Skin: Denies: Rash Neurological: Denies: Headache Physical Exam Vital Signs/Narrative: Vital Signs Temp Pulse Resp BP Pulse Ox 07/03/20 16:25 97.3 F L 68 16 140/92 H 97 Inital Vital Signs reviewed: Yes General: Well nourished Head: Normocephalic Eyes: EOMI ENT: Moist mucous membranes Neck: Supple Cardiovascular: Regular rate Respiratory: No distress Abdomen: Soft, Nontender, Nondistended : - - Reyes catheter noted with sediment in the catheter, a small amount of light yellow urine in the leg bag Skin: Normal color Neurological: Alert Psychological: Normal affect Diagnostic/Tx/Re-eval Laboratory Results 07/03/20 16:50 Urine Color Yellow Urine Clarity Sl. Cloudy Urine pH 6.5 Ur Specific [place] 1.010 Urine Protein 15 H Urine Glucose (UA) Normal Urine Ketones Negative Urine Occult Blood 25 H Urine Nitrite Positive H Urine Bilirubin Negative Urine Urobilinogen Normal Ur Leukocyte Esterase 500 H Urine RBC 0-5 SEEN Urine WBC 25-50 SEEN Ur Squamous Epith Cells 0-5 SEEN Urine Bacteria 0 SEEN Urine Mucus 0 SEEN - Medical Decision Making Reyes exchanged. Urinalysis is consistent with infection. We will treat with Bactrim. Patient will follow-up with urology. He understands to return for new or worsening symptoms and was discharged home. ED Disposition - Plan for ED Patient: Disposition: Home or Assisted Living Diagnosis: UTI (urinary tract infection) Instructions: Understanding Urinary Tract Infections (UTIs) Prescriptions: Smz/Tmp Ds [Bactrim Ds] 1 tab PO BID #14 tab Prescription Printed Referrals: Shin Foster NP [Other]
[2020-07-03 17:03] LABS: Bacteria 0 SEEN /hpf (None Seen); Mucous, Urine 0 SEEN /hpf (<or=2+)
[2020-07-03 17:05] LABS: Color, Urine Yellow (Yellow); Glucose, Dipstick Normal (Normal); Ketone-Dipstick Negative (Negative); Leukocyte Esterase-Dipstick 500 /ul (Negative); Nitrite-Dipstick Positive (Negative); Occult Blood-Urine 25 /ul (Negative); Protein-Dipstick 15 mg/dl (Negative); Urine Bilirubin Dipstick Negative (Negative); Urine Clarity Sl. Cloudy (Clear); Urine Urobilinogen Normal (Normal); Urine pH 6.5 (5.0 - 8.0)
[2020-07-03 17:43] LABS: Red Blood Cells-Urine 0-5 SEEN /hpf (0-5); Squamous Epithelial Cells - UA 0-5 SEEN /hpf (0-5); White Blood Cells 25-50 SEEN /hpf (0-5)
[2020-07-03 18:15] VITALS: BP 124/87; PULSE 64; RESP 15
[2020-07-03] MEDS: Smz/Tmp Ds Tablet 1 TABLET PO (18:16)
== END 2020-07-03 18:27 | disposition home or self-care (01) ==
PROVIDERS: Emergency Provider Emergency Medicine
DX: N39.0 Urinary tract infection, site not specified (principal); N40.1 Benign prostatic hyperplasia with lower urinary tract symptoms; R33.8 Other retention of urine
CPT/HCPCS: 51702; 81001; 99284

== ENCOUNTER 2023-11-30 14:12 | Emergency (ER) | payer OTHER, SELFPAY ==
[2023-11-30] VITALS (8 sets, daily range): BP systolic 132–180; BP diastolic 65–94; PULSE 62–96; RESP 16–19; TEMP 36.1–37.8; O2SAT 92–97; BMI 26.7
[2023-11-30 15:00] LABS: Absolute Lymphocyte Count 1.27 X10^3/uL (0.83-4.51); Absolute Neutrophil Count 5.2 X10^3/uL (2.0-7.7); Basophil# 0.04 X10^3/uL; Basophil% 0.5 % (0-1); Eosinophil# 0.17 X10^3/uL; Eosinophils% 2.1 % (0-5); Hematocrit 33.4 % (40-54); Hemoglobin 10.8 g/dL (13.0-16.5); Lymphocyte # 1.27 X10^3/ul (0.83-4.51); Mean Corp Hgb Conc 32.3 g/dL (32-36); Mean Corpuscular Hgb 28.3 pg (27.0-32.0); Mean Corpuscular Volume 87.7 fL (80-94); Monocyte# 1.23 X10^3/uL; Monocyte% 15.5 % (0-10); NRBC Flagged by Analyzer 0 % (0-5); Neutrophil # 5.22 X10^3/uL (2.7-7.7); Neutrophil % 65.5 % (47-70); Platelet Count 218 K/mm3 (150-450); RBC Distribution Width SD 41.3 fl (35.1-43.9); Red Blood Count 3.81 M/mm3 (4.6-6.2)
--- OUTSIDE RECORDS SUMMARY | 2023-11-30 15:01 | XMS RPT_ITS | CCD ---
Author Name Unknown Address [address] [place] [id number] Organization [facility] Results Test Name Value Interpretation Reference Range Facil ity Progress note 12-19-2020 Note Date & Type Note Facility 12-19-2020 Note HNO ID: [id number] Author: Sam Lopez Service: ? Author Type: Physician Type: Progress Notes Filed: 12/19/2020 2:26 PM Note Text: [facility] ESTABLISHED PATIENT NOTE PATIENT INFO: Elijah Jacobsen PCP: GERALD RED MD UROLOGY DIAGNOSES: 1. BPH with obstruction/lower urinary tract symptoms - ICD9: 600.01, 599.69, ICD10: N40.1, N13.8 CHIEF COMPLAINT: BPH HPI: Patient returns for continuing evaluation and management. Had Rezum 5 months ago. Failed voiding trial at 3 weeks but then never returned for his 6 week appointment. PMH: PAST MEDICAL HISTORY Diagnosis Date - Pneumonia PSH: PAST SURGICAL HISTORY Procedure Laterality Date - OTHER SURGICAL HISTORY (PLEASE SPECIFY) HX Right knee cartilage repair SH: Social History Tobacco Use - Smoking status: Never Smoker - Smokeless tobacco: Never Used Substance Use Topics - Alcohol use: Never - Drug use: Never FH: FAMILY HISTORY Problem Relation Age of Onset - other (Other) Mother gallbadder removed - other (Other) Father - other (Other) Sister - other (Other) Brother scarlet fever - Cancer Maternal Grandmother - other (Other) Paternal Grandmother typhoid fever - other (Other) Sister gallbladder issues - other (Other) Sister CVA or [place]? ROS: PERTINENT REVIEW OF SYSTEMS CHANGES SINCE LAST APPOINTMENT: none MEDICATIONS: Current Outpatient Medications Medication Sig - tamsulosin ER (FLOMAX) 0.4 mg Take 0.4 mg by mouth. - SAW PALMETTO FRUIT ORAL Take by mouth. - ZINC ORAL Take by mouth. - potassium (POTASSIMIN ORAL) Take by mouth. - multivit-min/ferrous fumarate (MULTI VITAMIN ORAL) Take by mouth. No current facility-administered medications for this visit. PHYSICAL EXAM: There were no vitals taken for this visit. There is no height or weight on file to calculate BMI. General Appearance/ Constitutional: Well developed, well nourished, and in no apparent distress DIAGNOSES: 1. BPH with obstruction/lower urinary tract symptoms - ICD9: 600.01, 599.69, ICD10: N40.1, N13.8 IMPRESSION/PLAN: Never returned for his 6 week voiding trial last year, has had castro since then. Voiding trial today: urinated well with good stream, 50 cc residual. Plan: RTC 3 months Stay off the flomax Sam Lopez MD Medical Decision Making: Problems: Moderate: 1+ chronic illnesses with change Risk: Moderate: Drug management Medical Decision Making Level: 4 - Moderate [facility] Progress note 11-29-2020 Note Date & Type Note Facility 11-29-2020 Note HNO ID: [id number] Author: Shin Foster Service: ? Author Type: Nurse Practitioner Type: Progress Notes Filed: 12/01/2020 1:15 PM Note Text: CC: Patient presents with: Recheck: Follow up HPI Elijah Jacobsen is a 80 year old male who presents today for follow up. Accompanied by his daughter. Patient denies any complaints or concerns today. Daughter notes appointment was made d/t noted confusion or forgetfulness. Initially noted symptoms ~2 [place] ago while in [place]. Daughter reports patient attends baptism regularly and forgot a prayer in the middle of service. Patient admits to forgetting where he puts things at times and Bible Verses he knew by heart. Denies forgetting people, places or his own name. He does have an indwelling castro catheter d/t urinary retention s/p Rezum procedure 07/21/[address] Lopez at [facility]. Castro catheter was replaced 10/07/20 by local urology provider. He is scheduled for follow up 12/12 Denies any fever, chills, hematuria or clots. Currently with a leg bag with notable odor. Bradycardic on initial intake. Denies any headache, chest pain, SOB, palpitations or edema. He was prescribed metoprolol at some point- reporting hx of cardiac arrhythmia- however he has not taken prescription medication in some time. Prefers holistic approach. MMS: REVIEW OF SYSTEMS General: no fevers, no chills, no change in energy and no significant changes in weight HEENT: no frequent or significant headaches, no visual changes Respiratory: no cough, no wheezing, no shortness of breath Cardiovascular: no chest pain, no chest pressure, no palpitations and no swelling : See HPI Neurologic: no headaches, no syncope, no dizziness, no vertigo, weakness, slurred speech or facial droop. Positive for: memory loss/confusion See HPI PAST MEDICAL HISTORY Diagnosis Date - Pneumonia PAST SURGICAL HISTORY Procedure Laterality Date - OTHER SURGICAL HISTORY (PLEASE SPECIFY) HX Right knee cartilage repair ALLERGIES Dust MEDICATIONS apixaban (ELIQUIS) 2.5 mg tab tab(s) Take by mouth twice daily. metoprolol succinate ER (TOPROL XL) 25 mg 24 hr tablet Take 12.5 mg by mouth twice daily. hydrOXYchloroQUINE (PLAQUENIL) 200 mg tablet Take 400 mg by mouth once daily. tamsulosin ER (FLOMAX) 0.4 mg Take 0.4 mg by mouth. SAW PALMETTO FRUIT ORAL Take by mouth. ZINC ORAL Take by mouth. potassium (POTASSIMIN ORAL) Take by mouth. multivit-min/ferrous fumarate (MULTI VITAMIN ORAL) Take by mouth. FAMILY HISTORY Problem Relation Age of Onset - other (Other) Mother gallbadder removed - other (Other) Father - other (Other) Sister - other (Other) Brother scarlet fever - Cancer Maternal Grandmother - other (Other) Paternal Grandmother typhoid fever - other (Other) Sister gallbladder issues - other (Other) Sister CVA or [place]? Social History Tobacco Use - Smoking status: Never Smoker - Smokeless tobacco: Never Used Substance Use Topics - Alcohol use: Never - Drug use: Never PHYSICAL EXAM BP 134/82 Pulse (!) 47 Temp 36.1 ?C (96.9 ?F) (Temporal) Resp 16 Wt 83.9 kg (185 lb) SpO2 100% BMI 25.61 kg/m? General Appearance: well appearing, in no acute distress, alert Pysch: mood and affect broad and appropriate Skin: Skin color, texture, turgor normal for age; Head: normocephalic, atraumatic Eyes: EOM's intact, conjunctiva pink and moist, no icterus, sclera white, non-injected Lungs: Lungs clear to auscultation. No wheezing, rhonchi, rales. Heart: bradycardic, irregular rhythm. Neurological: Gait normal. Cranial nerves grossly intact DTAP,TDAP,TD(1 - Tdap) Completed SHINGRIX VACCINE(1 of 2) Completed ADVANCE DIRECTIVE DISCUSSION Completed PNEUMOVAX AGE 65 AND OVER WITH 5YR LOOKBACK(1) Completed INFLUENZA(1) Completed DIABETES SCREEN due on 08/17/2022 MENINGOCOCCAL CONJUGATE Completed ASSESSMENT/PLAN: 1. Confusion - ICD9: 298.9, ICD10: R41.0 (primary diagnosis) - UA dip revealed trace blood, small leuks and nitrates, culture sent for sensitivity report prior to starting antibiotics - Follow up with urology as scheduled - CMP (CMP) (FOR REMOTE [facility] USE) - CBC + DIFF (FOR REMOTE [facility] USE) - B-12 LEVEL (B12) (FOR REMOTE [facility] USE) - TSH (FOR REMOTE [facility] USE) - UA DIP, URINE (POC) - URINALYSIS, WITH MICROSCOPIC - URINE CULTURE 2. Bradycardia - ICD9: 427.89, ICD10: R00.1 - ECG today revealed SR with PACs at 70 bpm. CO 152ms, QRS 76ms and QT 382ms without acute ST changes. Will attempt to locate previous ECG studies for comparison. - ECG COMPLETE - Follow up in 2-3 months Addendum 12/01- ECG unchanged from study in February 2020 where follow up Echo was completed. Result sent for scanning 3. Castro catheter in place - ICD9: V45.89, ICD10: Z97.8 - Plan as above see #1 - UA DIP, URINE (POC) - URINALYSIS, WITH MICROSCOPIC - URINE CULTURE Shin Foster APRN.DRAWING TENDER Prescription instructions review (more content not included)... [facility] Summary Purpose Family History No Family History Records Found Advance Directives No Advanced Directives Records Found Additional Source Comments (unrecognized sect ion and content) No Status Records Found INFORMATION SOURCE (unrecogn ized section and content) FOR RECORDS PERTAINING TO PATIENTS WHO ARE OR HAVE BEEN ENROLLED IN A CHEMICAL DEPENDENCY/SUBSTANCEABUSE PROGRAM, SOME INFORMATION MAY BE OMITTED. This clinical summary was aggregated from multiple sources. Caution should be exercised in using it in the provision of clinical care. This summary normalizes information from multiple sources, and as a consequence, information in this document may materially change the coding, format and clinical context of patient data. In addition, data may be omitted in some cases. CLINICAL DECISIONS SHOULD BE BASED ON THE PRIMARY CLINICAL RECORDS. [facility] [employer] [facility]. provides no warranty or guarantee of the accuracy or completeness of information in this document.
[2023-11-30 15:15] LABS: Color, Urine Yellow (Yellow); Glucose, Dipstick Normal (Normal); Ketone-Dipstick 5 mg/dl (Negative); Leukocyte Esterase-Dipstick 500 /ul (Negative); Mucous, Urine 0 SEEN /hpf (<or=2+); Nitrite-Dipstick Positive (Negative); Occult Blood-Urine 250 /ul (Negative); Protein-Dipstick 100 mg/dl (Negative); Red Blood Cells-Urine 0 SEEN /hpf (0-5); Squamous Epithelial Cells - UA 0 SEEN /hpf (0-5); Urine Bilirubin Dipstick Negative (Negative); Urine Clarity Sl. Cloudy (Clear); Urine Urobilinogen Normal (Normal); Urine pH 6.5 (5.0 - 8.0)
[2023-11-30 15:16] LABS: Anion Gap 8 (5-15); BUN 42 mg/dL (7-18); Calcium,Total 8.7 mg/dL (8.5-10.1); Chloride 106 mmol/L (98-107); Creatinine, Serum 4.69 mg/dL (0.70-1.30); EST Glomerular Filtration Rate 13 mL/min (>60); Est Glom Filt Rate - Afr Amer 15 mL/min (>60); Glucose 116 mg/dL (74-106); Potassium 4.5 mmol/L (3.5-5.1); Sodium Level 137 mmol/L (136-145)
[2023-11-30 15:18] LABS: Bacteria 2+ /hpf (None Seen); White Blood Cells 25-50 SEEN /hpf (0-5)
--- NOTE | 2023-11-30 15:50 | CT_ITS ---
STUDY: CT ABDOMEN AND PELVIS WITHOUT CONTRAST REASON FOR EXAM: Male, 83 years old. abdominal pain RADIATION DOSAGE (If Supplied By Facility): CTDIvol = ( 11.07 ) mGy, DLP = ( 1410.14 ) mGycm TECHNIQUE: Transaxial images were obtained from the dome of the diaphragm to the symphysis pubis without oral contrast, and without intravenous contrast. Sagittal and coronal images were reconstructed. Individualized dose optimization techniques were used for this CT. COMPARISON: 03/10/2020 FINDINGS: Small bilateral pleural effusions with bibasilar atelectasis. The visualized portions of the heart are within normal limits. Elevated right hemidiaphragm. Normal liver. Normal gallbladder and extrahepatic biliary system. Normal spleen. Normal pancreas. Normal bilateral adrenal glands. No change in the severe bilateral hydronephrosis and ureteral dilatation to the bladder. No renal or ureteral stone. Normal visualized stomach. Normal small intestine. Normal colon. There is non-visualization of the appendix. Normal abdominal aorta. Normal inferior vena cava. Suspect of the mild retroperitoneal and iliac lymphadenopathy including left external iliac/pelvic sidewall lymphadenopathy measuring 3 x 6 cm worrisome for metastatic lymphadenopathy. Reyes catheter in the collapsed bladder. Suspect severe circumferential bladder wall thickening. 6 cm area of soft tissue attenuation within the rectovesical space worrisome for mass and correlation with CT of the abdomen and pelvis with oral and intravenous contrast is recommended. Normal abdominal wall. Mild levoscoliosis lumbar spine with degenerative disc disease. CT/Abdomen/Pelvis without Cont IMPRESSION: 1. Small bilateral pleural effusions with bibasilar atelectasis. 2. Chronic bilateral severe hydronephrosis and ureteral dilatation to the bladder. No renal or ureteral stone. 3. Suspect 6 cm soft tissue mass in the rectovesical space with metastatic retroperitoneal, iliac, and pelvic sidewall lymphadenopathy. Correlation with CT the abdomen and pelvis with oral and intravenous contrast is recommended. PET/CT scan may also be useful. 4. Reyes catheter within the bladder with diffuse bladder wall thickening. Electronically Signed: Vidal Kwok MD at 17:26 EDT ,
[2023-11-30] MEDS: Ceftriaxone 1 GM/50 ML BAG IV (15:53)
--- NOTE | 2023-11-30 15:54 | EX.ED.GUMALE ---
HPI History of Present Illness Chief Complaint: Flank Pain Narrative Narrative: 83-year-old male with history of UTI, chronic kidney disease, urinary retention presenting for evaluation. Apparently had some lab work drawn yesterday which showed he was in renal failure. Family does not have any paperwork or documentation. The patient is not a very good informant. He states that he was previously treated for UTI but is not on antibiotics currently. Though he was seen yesterday and told he had a urinary tract infection he was not placed on any antibiotics. He was called today and told to come to the hospital because of his renal failure. Patient has had a Reyes catheter indwelling for 6 weeks placed by his primary care (Efrain Brown PA-C) patient had this changed about a week ago. Family states that the patient did go to [place] a couple of weeks ago with the Reyes catheter in place. Since has been back he has been weak and debilitated. He has difficulty walking due to weakness. Patient has increased p.o. intake. He was able to ambulate today from the bathroom but needed assistance to get to the hospital in and out of car. Denies any falls or trauma. He did complain of some abdominal pain while walking today but states he does not have any abdominal pain currently while laying in the bed. No history of kidney stones. No fevers or chills. PFSH PFSH Home Medications oxybutynin chloride 10 mg tablet,extended release 24 hr 10 mg PO DAILY 11/30/23 [History Last Taken Unknown] tamsulosin 0.4 mg capsule 0.4 mg PO DAILY 11/30/23 [History Last Taken Unknown] Allergy/AdvReac Type Severity Reaction Status Date / Time No Known Allergies Allergy Verified 11/30/23 14:13 Social History Smoking Status: Never smoker ROS ROS ED ROS Narrative Generalized weakness Constitutional Constitutional ED: Denies chills, fever(s) or sweats Eyes Eyes: Denies blurry vision or change in vision ENT ENT ED: Denies ear pain or sore throat Cardiovascular Cardiovascular: Denies chest pain, palpitations or racing heartbeat Respiratory/Chest Respiratory/Chest: Reports other Details: Indwelling Reyes catheter ; Denies cough, dyspnea or sputum Gastrointestinal Gastrointestinal: Reports abdominal pain; Denies constipation, diarrhea, nausea or vomiting Genitourinary Genitourinary ED: Denies dysuria, hematuria or urinary frequency Musculoskeletal Musculoskeletal: Denies arthralgias, myalgias or neck pain Integumentary Denies abscess, Abrasions or rash Neurologic Neurologic: Denies headache(s), paresthesias or weakness Psychiatric Psychiatric: Denies anxiety, depression, suicidal ideation or suicidal thoughts Endocrine Endocrinology: Denies polydipsia or polyuria EXAM Physical Exam Const Vital Signs: 11/30/23 14:13 11/30/23 15:58 11/30/23 16:00 Temperature 99 F 100.1 F H 100.1 F H Temperature Source Temporal Oral Oral Pulse Rate 88 73 79 Respiratory Rate 18 18 16 Blood Pressure 180/93 H 176/74 H 172/81 H Blood Pressure Mean 122 108 111 Pulse Ox 97 93 92 Oxygen Delivery Method Room Air Room Air Room Air 11/30/23 17:32 11/30/23 18:53 11/30/23 19:56 Temperature 98.7 F 97 F L 98.9 F Temperature Source Temporal Temporal Oral Pulse Rate 96 84 62 Respiratory Rate 18 18 19 H Blood Pressure 156/94 H 135/79 H 132/65 H Blood Pressure Mean 114 97 87 Pulse Ox 96 94 94 Oxygen Delivery Method Room Air Room Air Room Air 11/30/23 19:58 11/30/23 20:15 Temperature 98.9 F 98.9 F Temperature Source Oral Pulse Rate 62 62 Respiratory Rate 19 H 19 H Blood Pressure 132/65 H 132/65 H Blood Pressure Mean 87 87 Pulse Ox 94 94 Oxygen Delivery Method Positive unkempt General Appearance ED: unkempt and NAD; Negative for pallor HEENT Reports dry mucous membranes normocephalic Mouth ED: Yes dry mucous membranes Mouth: dry mucous membranes Eyes PERRL and EOMs intact bilaterally Resp normal respiratory effort Auscultation: Negative for rales, rhonchi or wheezes Cardio regular rate and regular rhythm GI non-tender, non-distended and no masses no CVA tenderness Neuro oriented x3, CN's II-XII intact bilaterally, moves all extremities, no focal motor deficits and no sensory deficits noted Sensorium / Orientation: alert Motor Exam: general weakness Psych mental status grossly normal Appearance: unkempt Skin General Skin Exam: Negative for jaundice or pallor MDM MDM MDM Narrative Medical decision making narrative: Patient presenting with generalized weakness. He is found to have UTI and acute kidney injury. Patient given Rocephin. Urine culture sent. CBC shows normal white blood cell count 8.0. Hemoglobin 10.8. Platelets 218. Creatinine 4.69 with a baseline of about 1.8 a couple of years ago. There is no recent labs. Patient given initial bolus of 1 L of normal saline and started at a rate of 75/h. 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 This is concerning for malignancy. There is concern that this is causing the obstruction. I spoke with the hospitalist for admission here at [facility] however it was recommended that I transfer the patient as we have no urology here and he would likely need nephrostomy tubes. I spoke with Dr. Nugent at [facility] who recommended transfer ER to ER as he needed percutaneous nephrostomy tubes. This was discussed with the family. Patient did spike a fever while he was here and was given Tylenol and his fever has now resolved. Temperature was 100.1 Fahrenheit orally. Patient will be transferred when supplies available. Impression: 1. Acute renal failure 2. UTI 3. Febrile illness 4. Urinary outlet obstruction 5. Bladder mass 6. Pelvic lymphadenopathy Lab Data Attestation: I reviewed the patient's lab results. Labs: Laboratory Results - last 24 hr 11/30/23 11/30/23 14:42 14:52 WBC 8.0 RBC 3.81 L Hgb 10.8 L Hct 33.4 L MCV 87.7 MCH 28.3 MCHC 32.3 RDW Std Deviation 41.3 RDW Coeff of Sergio 13.0 Plt Count 218 MPV 11.0 Immature Gran % (Auto) 0.400 Neut % (Auto) 65.5 Lymph % (Auto) 16.0 L Forrest % (Auto) 15.5 H Eos % (Auto) 2.1 Baso % (Auto) 0.5 Absolute Neuts (auto) 5.2 Absolute Lymphs (auto) 1.27 Nucleated RBC % 0 Sodium 137 Potassium 4.5 Chloride 106 Carbon Dioxide 23.0 Anion Gap 8 BUN 42 H Creatinine 4.69 H Est GFR (MDRD) Af Amer 15 L Est GFR (MDRD) Non-Af 13 L BUN/Creatinine Ratio 9.0 L Glucose 116 H Calcium 8.7 Urine Color Yellow Urine Clarity Sl. Cloudy Urine pH 6.5 Ur Specific [place] 1.010 Urine Protein 100 H Urine Glucose (UA) Normal Urine Ketones 5 H Urine Occult Blood 250 H Urine Nitrite Positive H Urine Bilirubin Negative Urine Urobilinogen Normal Ur Leukocyte Esterase 500 H Urine RBC 0 SEEN Urine WBC 25-50 SEEN Ur Squamous Epith Cells 0 SEEN Urine Bacteria 2+ Urine Mucus 0 SEEN Radiography Diagnostic Testing: Clinical Impression(s) from Imaging Studies Abdomen/Pelvis CT 11/30/23 15:50 IMPRESSION: 1. Small bilateral pleural effusions with bibasilar atelectasis. 2. Chronic bilateral severe hydronephrosis and ureteral dilatation to the bladder. No renal or ureteral stone. 3. Suspect 6 cm soft tissue mass in the rectovesical space with metastatic retroperitoneal, iliac, and pelvic sidewall lymphadenopathy. Correlation with CT the abdomen and pelvis with oral and intravenous contrast is recommended. PET/CT scan may also be useful. 4. Reyes catheter within the bladder with diffuse bladder wall thickening. Electronically Signed: Vidal Kwok MD at 17:26 EDT , Discharge Plan Triage Chief Complaint: Flank Pain ED Provider: Armani Kramer Dx/Rx/DC Orders Prescriptions: No Action tamsulosin 0.4 mg capsule 0.4 mg PO DAILY oxybutynin chloride 10 mg tablet extended release 24hr 10 mg PO DAILY Primary Care Provider: Efrain Brown Referrals: Efrain Brown PA-C [Primary Care Provider] -
[2023-11-30] MEDS: 0.9% Normal Saline (1000mL) 1,000 ML 999 ML IV (15:56)
[2023-11-30] MEDS: Acetaminophen 500 MG Tablet 1000 MG PO (17:30)
[2023-11-30] MEDS: 0.9% Normal Saline (1000mL) 1,000 ML 75 ML IV (18:50)
--- NOTE | 2023-11-30 19:13 | ED.RN ---
PT ACCEPTED TO [facility], N2N [id number] [place] ETA 60-90 MIN
== END 2023-11-30 20:49 | disposition short-term general hospital (02) ==
LOC: ED 14:58
PROVIDERS: Emergency Provider Student in an Organized Health Care Education/Training Program; PCP Physician Assistant; Visit Provider Student in an Organized Health Care Education/Training Program
DX: N17.9 Acute kidney failure, unspecified (principal); N39.0 Urinary tract infection, site not specified; N32.9 Bladder disorder, unspecified; N13.9 Obstructive and reflux uropathy, unspecified; R59.0 Localized enlarged lymph nodes; R50.9 Fever, unspecified; N18.9 Chronic kidney disease, unspecified; Z79.899 Other long term (current) drug therapy
CPT/HCPCS: 74176; 80048; 81001; 85025; 87077; 87086; 87088; 87186; 96365; 96366; 99283; J7030